=== PATIENT | female | born 1990 | race African-American/Black ===

== ENCOUNTER 2023-11-07 10:49 | Emergency (ER) | payer OTHER, SELFPAY ==
--- NOTE | 2023-11-07 10:54 | ED.URI ---
HPI - URI/Sore Throat General Chief Complaint: Upper Respiratory Infection Stated Complaint: Congestion/Headache/Cough Source: patient and RN notes reviewed Mode of arrival: ambulatory Limitations: no limitations History of Present Illness HPI Narrative: Patient is a 33-year-old female who presents to the [facility] with complaints of nasal congestion, headache, and cough for the last couple days. Patient reports an infrequent nonproductive cough. Denies chest pain or shortness of breath. She denies sore throat. Denies abdominal pain, nausea, vomiting, diarrhea. Patient states that her daughter tested positive for COVID last week. Related Data Home Medications Medication Instructions Recorded Confirmed allopurinol 100 mg tablet mg 11/07/23 Allergies Allergy/AdvReac Type Severity Reaction Status Date / Time No Known Allergies Allergy Verified 11/07/23 11:02 Review of Systems Review of Systems: CONSTITUTIONAL: Denies fever, chills, or sweats. EYES: Denies visual changes, redness, or discharge. ENT: Denies otalgia and sore throat. Reports nasal congestion. CARDIOVASCULAR: Denies chest pain, palpitations, or edema. RESPIRATORY: Reports cough but denies dyspnea. GASTROINTESTINAL: Denies abdominal pain, nausea, vomiting, or diarrhea. GENITOURINARY: Denies dysuria or hematuria. SKIN: Denies rash or itching. MUSCULOSKELETAL: Denies back pain, joint pain, or myalgia. NEUROLOGIC: Reports headache but denies numbness or weakness. Pertinent positives per HPI. PMFSH Comments At the time of my signature, I reviewed and agree with the nursing past medical, surgical, social, and family history. There is no relevant family history pertinent to the patient complaint. Exam Narrative: GENERAL: This is a well-nourished, well-developed patient, in no apparent distress. HEAD: normocephalic, atraumatic. EYES: Sclera clear/white. Vision is grossly intact. EARS: External ears normal, auditory canals clear and without drainage, TMs normal without perforation. Hearing grossly intact. NOSE: External nose normal with no obvious nasal discharge, nares without redness, no rhinorrhea. THROAT: Mucous membranes moist, posterior pharynx clear. NECK: Neck supple, non-tender without lymphadenopathy, masses or thyromegaly. CARDIOVASCULAR: Regular rate and rhythm without murmurs, gallops, or rubs. RESPIRATORY: Clear to auscultation. Breath sounds equal bilaterally. No wheezes, rales, or rhonchi. GASTROINTESTINAL: Abdomen soft, non-tender, nondistended. Bowel sounds are active. No hepato-splenomegaly, or palpable masses. No guarding. SKIN: warm, intact with no suspicious lesions or rash, good texture and turgor. NEURO: awake, alert, and oriented to person, place and time. There were no obvious focal neurologic abnormalities. Course Course Level of Care: Express Care Visit Vital Signs Vital signs: Vital Signs Temperature 98.1 F 11/07/23 10:57 Pulse Rate 81 11/07/23 10:57 Respiratory Rate 16 11/07/23 10:57 Blood Pressure 152/96 H 11/07/23 10:57 Pulse Oximetry 100 11/07/23 10:57 Oxygen Delivery Room Air 11/07/23 10:57 Temperature 98.1 F 11/07/23 11:17 Pulse Rate 81 11/07/23 11:17 Respiratory Rate 16 11/07/23 11:17 Blood Pressure 152/96 H 11/07/23 11:17 Pulse Oximetry 100 11/07/23 11:17 Oxygen Delivery Room Air 11/07/23 11:17 Reviewed MDM - URI/Sore Throat MDM Narrative Medical decision making narrative: COVID-19 DISCHARGE The following recommendations have been made by the CDC and local Health Departments, regarding COVID-19: If You Test Positive for COVID-19 (Isolate) Everyone, regardless of vaccination status. Stay home for 5 days. If you have no symptoms or your symptoms are resolving after 5 days, you can leave your house. Continue to wear a mask around others for 5 additional days. If you have a fever, continue to stay home until your fever resolves. Those individuals
[2023-11-07 10:57] VITALS: BP 152/96; PULSE 81; RESP 16; TEMP 36.7; O2SAT 100
[2023-11-07 11:17] VITALS: BP 152/96; PULSE 81; RESP 16; TEMP 36.7; O2SAT 100
== END 2023-11-07 11:32 | disposition home or self-care (01) ==
PROVIDERS: Emergency Provider Nurse Practitioner; PCP Family Medicine
DX: U07.1 COVID-19 (principal); M10.9 Gout, unspecified
CPT/HCPCS: 87426; 87804; 99213; G0463

== ENCOUNTER 2023-12-02 11:35 | Emergency (ER) | payer OTHER, SELFPAY ==
[2023-12-02 11:48] VITALS: BP 148/96; PULSE 72; RESP 16; TEMP 36.7; O2SAT 100
--- NOTE | 2023-12-02 12:14 | ED.URI ---
HPI - URI/Sore Throat General Chief Complaint: Upper Respiratory Infection Stated Complaint: Sinus Pain/Headache/Vomiting History of Present Illness HPI Narrative: PATIENT PRESENTS WITH SINUS PRESSURE AND CONGESTION. PATIENT HAS NOT TAKEN ANYTHING [id number] FOR HER SYMPTOMS. PATIENT STATES HER SYMPTOMS HAVE BEEN GOING ON FOR 7-10 DAYS Related Data Home Medications Medication Instructions Recorded Confirmed allopurinol 100 mg tablet mg 11/07/23 ergocalciferol (vitamin D2) 1,250 12/02/23 12/02/23 mcg (50,000 unit) capsule Allergies Allergy/AdvReac Type Severity Reaction Status Date / Time No Known Allergies Allergy Verified 12/02/23 11:46 Review of Systems Review of Systems: CONSTITUTIONAL: DENIES CHILLS, OR SWEATS. REPORTS FEVER AND GENERALIZED BODY ACHES EYES: DENIES VISUAL CHANGES, REDNESS, OR DISCHARGE. ENT: DENIES OTALGIA. REPORTS NASAL CONGESTION RUNNY NOSE AND SORE THROAT CARDIOVASCULAR: DENIES CHEST PAIN, PALPITATIONS, OR EDEMA. RESPIRATORY: DENIES DYSPNEA. REPORTS OCCASIONAL COUGH GASTROINTESTINAL: DENIES ABDOMINAL PAIN, NAUSEA, VOMITING, OR DIARRHEA. GENITOURINARY: DENIES DYSURIA OR HEMATURIA. SKIN: DENIES RASH OR ITCHING. MUSCULOSKELETAL: DENIES BACK PAIN, JOINT PAIN, OR MYALGIA. REPORTS GENERALIZED BODY ACHES NEUROLOGIC: DENIES HEADACHE, NUMBNESS, OR WEAKNESS. PSYCHIATRIC: DENIES ANXIETY OR DEPRESSION. PMFSH Comments AT TIME OF SIGNATURE, AGREE WITH NURSING PAST MEDICAL, SURGICAL, SOCIAL AND FAMILY HISTORY. THERE IS NO RELEVANT FAMILY HISTORY PERTINENT TO THE PRESENTING COMPLAINT Exam Narrative: THE PATIENT IS A WELL-DEVELOPED, WELL-NOURISHED IN NO ACUTE DISTRESS. SKIN: SKIN IS WARM AND DRY WITHOUT ERYTHEMA, SWELLING OR EXUDATE. THERE IS GOOD TURGOR. NO TENTING. HEAD: ATRAUMATIC. NORMOCEPHALIC. NO TEMPORAL OR SCALP TENDERNESS. EYES: MOIST AND BRIGHT. SCLERA AND CONJUNCTIVAE NORMAL. NO DISCHARGE. PERRLA. EXTRAOCULAR MOTIONS INTACT. GROSS VISUAL ACUITY INTACT. EARS: PINNA IS NORMAL SHAPE AND CONTOUR. CLEAR EXTERNAL AUDITORY CANALS. TM PEARLY MIN WITH GOOD CONE OF LIGHT, NO ERYTHEMA OR SUPPURATION. BILATERAL CERUMEN NOTED NO GROSS HEARING DEFICIT. NOSE: PINK, MOIST MUCOSA WITH GOOD AIR MOVEMENT. CLEAR RHINORRHEA WITHOUT NASAL FLARING. SEPTUM MIDLINE. MILD TENDERNESS TO MAXILLARY SINUSES MOUTH: MOIST MUCOUS MEMBRANES. THROAT; MILD ERYTHEMA NOTED TO POSTERIOR OROPHARYNX WITH MODERATE POSTNASAL DRAINAGE. WITHOUT EXUDATE OR ULCERATION.. UVULA MIDLINE. NORMAL MOVEMENT OF SOFT PALATE. NECK: SUPPLE AND NONTENDER WITH FULL RANGE OF MOTION WITHOUT DISCOMFORT. NO MENINGEAL SIGNS. LUNGS: EQUAL AND BILATERAL BREATH SOUNDS WITHOUT WHEEZES, RALES OR RHONCHI. CHEST: THE CHEST WALL IS WITHOUT RETRACTIONS OR USE OF ACCESSORY MUSCLES. HEART: HAS A REGULAR RATE AND RHYTHM WITHOUT MURMUR, GALLOPS, CLICK OR RUB. ABDOMEN: SOFT, NONTENDER WITH POSITIVE ACTIVE BOWEL SOUNDS. NO REBOUND TENDERNESS. EXTREMITIES: WITHOUT CYANOSIS, CLUBBING OR EDEMA. EQUAL 2+ DISTAL PULSES AND 2 SECOND CAPILLARY REFILL NOTED. NEUROLOGIC: ALERT, ACTIVE, . THE PATIENT MOVES ALL EXTREMITIES WITH NORMAL MUSCLE STRENGTH. NORMAL MUSCLE TONE IS NOTED. NORMAL COORDINATION IS NOTED. NO FOCAL NEUROLOGICAL FINDINGS NOTED. Course Course Level of Care: Express Care Visit Vital Signs Vital signs: Vital Signs Temperature 36.7 C 12/02/23 11:48 Pulse Rate 72 12/02/23 11:48 Respiratory Rate 16 12/02/23 11:48 Blood Pressure 148/96 H 12/02/23 11:48 Pulse Oximetry 100 12/02/23 11:48 Oxygen Delivery Room Air 12/02/23 11:48 Temperature 36.7 C 12/02/23 11:48 Pulse Rate 72 12/02/23 11:48 Respiratory Rate 16 12/02/23 11:48 Blood Pressure 148/96 H 12/02/23 11:48 Pulse Oximetry 100 12/02/23 11:48 Oxygen Delivery Room Air 12/02/23 11:48 PLEASE LEONEL SCHEDULE A FOLLOWUP VISIT WITH YOUR PERSONAL PHYSICIAN FOR FURTHER EVALUATION AND TREATMENT. INCLUDING RECHECK AND DISCUSSION OF YOUR BLOOD PRESSURE. IF YOUR SY
== END 2023-12-02 12:24 | disposition home or self-care (01) ==
PROVIDERS: Emergency Provider Nurse Practitioner Family; PCP Family Medicine
DX: J32.9 Chronic sinusitis, unspecified (principal); M10.9 Gout, unspecified; Z86.16 Personal history of COVID-19
CPT/HCPCS: 99213; G0463

== ENCOUNTER 2024-03-28 08:36 | Emergency (ER) | payer OTHER, SELFPAY ==
[2024-03-28 08:39] VITALS: BP 153/103; PULSE 73; RESP 16; TEMP 36.3; O2SAT 100
--- NOTE | 2024-03-28 09:05 | ED.URI ---
HPI - URI/Sore Throat General Chief Complaint: Upper Respiratory Infection Stated Complaint: Sinus Pain/Headache Time Seen by Provider: 03/28/24 09:05 Source: patient Mode of arrival: ambulatory Limitations: no limitations History of Present Illness HPI Narrative: 34-year-old female complains of sinus pressure for 1 week. Was seen at ER last week for sinus pressure and given prednisone. Continue to have sinus pressure this week so called primary care physician and was given Z-Sonny. Has been taking Z-Sonny for 2 days and continues to have sinus pressure. Taking Claritin and Flonase daily. Requesting work note. All systems reviewed and negative except as noted above. Related Data Home Medications Medication Instructions Recorded Confirmed ergocalciferol (vitamin D2) 1,250 12/02/23 12/02/23 mcg (50,000 unit) capsule Allergies Allergy/AdvReac Type Severity Reaction Status Date / Time No Known Allergies Allergy Verified 12/02/23 11:46 Review of Systems Review of Systems: CONSTITUTIONAL: Denies fever, chills, or sweats. EYES: Denies visual changes, redness, or discharge. ENT: Reports rhinorrhea, congestion, sinus pressure. Denies sore throat, or otalgia. CARDIOVASCULAR: Denies chest pain, palpitations, or edema. RESPIRATORY: Denies cough or dyspnea. GASTROINTESTINAL: Denies abdominal pain, nausea, vomiting, or diarrhea. GENITOURINARY: Denies dysuria or hematuria. SKIN: Denies rash or itching. MUSCULOSKELETAL: Denies back pain, joint pain, or myalgia. NEUROLOGIC: Denies headache, numbness, or weakness. PSYCHIATRIC: Denies anxiety or depression. All other systems reviewed are negative, except as documented in HPI. PMFSH Comments At time of signature, agree with nursing past medical, surgical, social and family history. There is no relevant family history pertinent to the presenting complaint. Exam Narrative: GENERAL: This is a well-nourished, well-developed patient, in no apparent distress. HEAD: normocephalic, atraumatic. EYES: PERRL. Sclera clear/white. Vision is grossly intact. EARS: External ears normal, auditory canals clear and without drainage, TMs normal without perforation. Hearing grossly intact. NOSE: External nose normal with erythema and swelling to bilateral nares with moderate congestion. THROAT: Mucous membranes moist, posterior pharynx clear. NECK: Neck supple, non-tender without lymphadenopathy, masses or thyromegaly. CARDIOVASCULAR: Regular rate and rhythm without murmurs, gallops, or rubs. RESPIRATORY: Clear to auscultation. Breath sounds equal bilaterally. No wheezes, rales, or rhonchi. SKIN: warm, Dry, intact with no suspicious lesions or rash, good texture and turgor. NEURO: awake, alert, and oriented to person, place and time. There were no obvious focal neurologic abnormalities. EXTREMITIES: No joint tenderness, effusion, or edema noted. Course Course Level of Care: Express Care Visit Vital Signs Vital signs: Vital Signs Temperature 36.3 C L 03/28/24 08:39 Pulse Rate 73 03/28/24 08:39 Respiratory Rate 16 03/28/24 08:39 Blood Pressure 153/103 H 03/28/24 08:39 Pulse Oximetry 100 03/28/24 08:39 Oxygen Delivery Room Air 03/28/24 08:39 Temperature 36.3 C L 03/28/24 08:39 Pulse Rate 73 03/28/24 08:39 Respiratory Rate 16 03/28/24 08:39 Blood Pressure 153/103 H 03/28/24 08:39 Pulse Oximetry 100 03/28/24 08:39 Oxygen Delivery Room Air 03/28/24 08:39 Reviewed MDM - URI/Sore Throat MDM Narrative Medical decision making narrative: Patient is aware of diagnosis, understands and agrees to treatment plan. Anticipatory guidance given. Patient agrees to follow-up as directed and is aware of reasons to seek care at the emergency department. Portions of this record may have been created with voice recognition software Differential Diagnosis Differential diagnosis: Likely sinusitis Discharge Plan Discharge Clinical Impression: Acut
== END 2024-03-28 09:18 | disposition home or self-care (01) ==
PROVIDERS: Emergency Provider Nurse Practitioner Family; PCP Family Medicine
DX: J01.90 Acute sinusitis, unspecified (principal)
CPT/HCPCS: 99213; G0463

== ENCOUNTER 2025-02-28 11:40 | Emergency (ER) | payer OTHER, SELFPAY ==
--- OUTSIDE RECORDS SUMMARY | 2025-02-28 11:43 | XMS_ITS | Clinical Summary ---
Author Organization [facility] Address [address] [place] [address] Care Team Providers Care Die Engraver Name Role Phone Unavailable Primary Care Provider Unavailabl e Source Comments [facility],non-owned Affiliates and Associated Physician Practices is amultiple site organization consisting of ambulatory clinics and hospital sitesin [place] and [place]. This disclosure is being madepursuant to the Care Everywhere program and may not contain all information available regarding this patient. Last updated 18.[facility] Allergies No known active allergies Social History Tobacco Use Types Packs/Day Years Used Date Smoking Tobacco: Never Assessed Comments Unknown Sex and Gender Information Value Date Recorded Sex Assigned at Not on file Legal Sex Female 4:20 PM LINE OUT MAN Gender Identity Not on file Sexual Orientation Not on file Plan of Treatment Health Maintenance Due Date Last Done Comments HIV SCREENING 01/23/2004 HEPATITIS C SCREENING 01/18/2007 DTAP/TDAP/TD VACCINES (1 - Tdap) 01/23/2008 HEPATITIS B VACCINE (1 of 3 - 19+ 3-dose series) 01/23/2008 COVID-19 VACCINE ( - 2023-2 5 season) 2024 DEPRESSION SCREENING 09/17/2024 INFLUENZA VACCINE (Season Ended) 2025 ZOSTER VACCINE (1 of 2) 2039 HIB VACCINE Aged Out No longer eligi ble based on patient's age to complete this topic HPV VACCINE Aged Out No longer eligi ble based on patient's age to complete this topic MENINGOCOCCAL (Group B) VACC INE SHARED DECISION-MAKING Aged Out No longer eligibl e based on patient's age to complete this topic MENINGOCOCCAL GROUPS A/C/Y/W VACCINE Aged Out No longer eligible b ased on patient's age to complete this topic PNEUMOCOCCAL VACCINE Aged Out No long er eligible based on patient's age to complete this topic Insurance [facility]
--- OUTSIDE RECORDS SUMMARY | 2025-02-28 11:43 | XMS_ITS | Clinical Summary ---
Author Organization [facility] Address [address] [place] [address] Phone Care Team Providers Care Financial Reserve Clerk Name Role Phone Taj Mcgee MD Primary Care Provider [phone] Allergies No known active allergies Medications fluticasone (FLONASE) 50 MCG/ACT SuspensionIndi cations:Season al allergies 1-2 Sprays by Nasal route daily. Use in each nostril as directed. 18.2 mL 3 04/18/20 23 Active Additional Information Patient not taking.Reported on 12/30/2024 loratadine (CLARITIN) 10 MG TabletIndicati ons:Seasonal allergies Take 1 Tablet by mouth daily. 90 Tablet 3 01/07/20 24 Active vitamin b-12 (CYANOCOBALAMI N) 500 MCG Tablet TAKE 1 TABLET BY MOUTH ONCE DAILY FOR 90 DOSES 07/15/20 24 Active cetirizine (ZyrTEC) 10 MG Tablet Take 1 Tablet by mouth daily. Active fluticasone (FLONASE) 50 MCG/ACT Suspension 1 [place] by Nasal route daily. Use in each nostril as directed. 16 g 2 08/12/20 24 Active metoprolol Succinate (TOPROL-XL) 25 MG TABLET SR 24 HR Take 1 Tablet by mouth daily. 90 Tablet 3 12/17/19 25 Active ergocalciferol (VITAMIN D) 14591 UNIT CapsuleIndicat ions:Vitamin D deficiency Take 1 Capsule by mouth once a week for 12 doses. 12 Capsule 04/02/20 25 025 Active allopurinol (ZYLOPRIM) 100 MG Tablet Take 1 tablet by mouth once daily 90 Tablet 1 02/13/20 25 Active allopurinol (ZYLOPRIM) 100 MG Tablet Take 2 Tablets by mouth daily. 180 Tablet 3 09/16/20 23 025 Discontinued Active Problems Problem Noted Date Diagnosed Date Primary hypertension 12/16/2024 Tachycardia 12/16/2024 Hypokalemia 08/13/2024 Dry nose 08/12/2024 Obesity (BMI 30-39.9) 08/12/2024 Subacute maxillary sinusitis 03/24/2024 B12 deficiency 07/23/2023 Idiopathic gout 04/18/2023 Morbid obesity 04/18/2023 Seasonal allergies 04/18/2023 Vitamin D deficiency 03/16/2022 Encounters Date Type Department Care Team Description 02/11/2025 Refill [facility] [address] [place] [address] Taj Mcgee MD Medication Refill 12/31/2024 3:37 PM CDT - 12/31/2024 4:31 PM CDT Emergency [facility] Emergency [address] [place] [address] Discharge Disposition: LWBS 12/31/2024 Travel 12/30/2024 10:00 AM CDT Clinical Support [facility] [address] [place] [address] [facility] Primary hypertension (Primary Dx) Discharge Disposition: Discharged to home or Selfcare 12/29/2024 Travel 12/17/2024 Results Follow-Up [facility] [address] [facility] [place] [address] Taj Mcgee MD VITAMIN D, 25 HYDROXY TOTAL, BASIC METABOLIC PANEL W/ CALCIUM TOTAL 12/16/2024 10:45 AM CDT Office Visit [facility] [address] [place] [address] Taj Mcgee MD Primary hypertension (Primary Dx); Vitamin D deficiency; Tachycardia; Hypokalemia Discharge Disposition: Discharged to home or Selfcare 12/15/2024 Travel from Last 3 Months Immunizations Immunization Administration Dates Next Due DTP Vaccine 06/27/1994, 3,01/17/1991,1989,1989 Hepatitis B Vaccine, Pediatric/adolescent 01/29/2002,08/05/2001,06/19/2001 Hib Vaccine,unspecified Formulation 09/27/1992 MMR Vaccine 09/27/1992,01/17/1991 OPV 06/27/1994, 3,01/17/1991,1989,1989 TDAP Vaccine 04/20/2021,12/07/2016 Varicella Vaccine Live 07/08/2021,04/20/2021 Family History Medical History Relation Name Comments Congestive Heart Failure Father Buddy Diabetes Father Buddy Heart Attack Father Buddy Cancer Maternal Grandmother Laura Hypertension Mother Brisa Rheumatoid Arthritis Mother Brisa Relation Name Status Comments Father Buddy Maternal Grandmother Laura Mother Brisa Social History Tobacco Use Types Packs/Day Years Used Date Smoking Tobacco: Never Smokeless Tobacco: Never Tobacco Cessation:Counseling Given: Yes Alcohol Use Standard Drinks/Week Comments Not Currently 0 (1 standard drink = 0.6 oz pur e alcohol) [facility] Utilities Answer Date Recorded In the past 12 months has [employer], gas, oil, or water [employer] threatened to shut off services in your home? No 12/15/2024 Social Connection and Isolation Panel Answer Date Recorded In a typical week, how many times do you talk on the phone with family, friends, or neighbors? Three times a week 12/15/2024 How often do you get togethe r with friends or relatives? Once a week 12/15/2024 How often do you attend chur ch or spiritism services? More than 4 times per year 12/15/2024 Do you belong to any clubs o r organizations such as holiness groups, unions, fraternal or athletic groups, or school groups? No 12/15/2024 How often do you attend meet ings of the clubs or organizations you belong to? Never 12/15/2024 Are you , , di vorced, , never , or living with a partner? Patient declined 12/15/2024 AUDIT-C Answer Date Recorded Q1: How often do you have a drink containing alcohol? Never 12/15/2024 Q2: How many drinks containi ng alcohol do you have on a typical day when you are drinking? Patient does not drink Q3: How often do you have si x or more drinks on one occasion? Never 12/15/2024 Overall Financial Resource Strain (CARDIA) Answe r Date Recorded How hard is it for you to pa y for the very basics like food, housing, medical care, and heating? Somewhat hard 12/15/2024 PHQ-2 Answer Date Recorded Total Score - Questions 1-9 0 09/2024 [facility] of Occupat ional Health - Occupational Stress Questionnaire Answer Date Recorded Do you feel stress - tense, restless, nervous, or anxious, or unable to sleep at night because your mind is troubled all the time - these days? Only a little 12/15/2024 Exercise Vital Sign Answer Date Recorde d On average, how many days pe r week do you engage in moderate to strenuous exercise (like a brisk walk)? 3 days 12/15/2024 On average, how many minutes do you engage in exercise at this level? 60 min 12/15/2024 Hunger Vital Sign Answer Date Recorded Within the past 12 months, y ou worried that your food would run out before you got the money to buy more. Sometimes true Within the past 12 months, t he food you bought just didn't last and you didn't have money to get more. Sometimes true PRAPARE - Transportation Answer Date Re corded In the past 12 months, has l ack of transportation kept you from medical appointments or from getting medications? No 11/17 In the past 12 months, has l ack of transportation kept you from meetings, work, or from getting things needed for daily living? No 12/15/2024 Housing Stability Vital Sign Answer Joni e Recorded In the last 12 months, was t here a time when you were not able to pay the mortgage or rent on time? No 01/06/2024 In the last 12 months, how many places have you lived? 1 01/06/2024 In the last 12 months, was t here a time when you did not have a steady place to sleep or slept in a usp (including now)? No 01/06/2024 Housing Stability Vital Sign Answer Joni e Recorded In the last 12 months, was t here a time when you were not able to pay the mortgage or rent on time? No 12/15/2024 In the past 12 months, how m any times have you moved where you were living? 0 12/15/2024 At any time in the past 12 m [facility], were you homeless or living in a usp (including now)? No 12/15/2024 Education Answer Date Recorded What is the highest level of school you have completed or the highest degree you have received? GED or equivalent 10/2022 Sexually Active Control Partners Comments Not Currently Male Condom Male Comments No Sex and Gender Information Value Date Recorded Sex Assigned at Not on file Legal Sex Female 8:34 PM CDT Gender Identity Not on file Sexual Orientation Not on file Last Filed Vital Signs Vital Sign Reading Time Taken Comments Blood Pressure 134/80 12/31/2024 1:45 PM CDT Pulse 73 12/31/2024 1:45 PM CDT Temperature 37.2 C (98.9 F) 12/31/2024 1:45 PM CDT Respiratory Rate 18 12/31/2024 1:45 PM CDT Oxygen Saturation 100% 12/31/2024 1:45 PM CDT Inhaled Oxygen Concentration - - Weight 100.4 kg (221 lb 5.5 oz) 12/31/2024 1:45 PM CDT Height 165.1 cm (5' 5) 12/31/2024 1:45 PM CDT Body Mass Index 36.83 12/31/2024 1:45 PM CDT Plan of Treatment Upcoming Encounters Date Type Department Care Team (Late st Contact Info) Description 04/15/2025 11:00 AM CDT Office Visit [facility] [place] [address] [place] [address] aTj Mcgee MD [address] [address] Health Maintenance Due Date Last Done Comments Hepatitis C Virus (HCV) Screening 1989 Human Papillomavirus (HPV) Immunization (1 - 3-dose series) 01/23/2004 SARS-COV-2 Immunization (3 - season) 2024 05/06/2021, 04/08/2021 Influenza Immunization (Season Ended) 2025 Cervical Cancer Screening (CCS) 10/18/2025 Pap Smear 10/18/2025 10/18/2020 HPV/Cotest 10/18/2026 10/18/2021, 10/22/2020 DTaP/Tdap/Td Immunization (8 - Td or Tdap) 04/20/2031 04/20/2021, 12/07/2016, 06/27/1994, Additional history exists Respiratory Syncytial Virus (RSV) Immunization (Adult) (1 - 1-dose 75+ series) 01/23/2064 Hepatitis B Immunization Completed 002, 08/05/2001, 06/19/2001 Meningococcal Immunization (ACWY) Aged Out No longer eligible based on patient's age to complete this topic Pneumococcal Immunization Combined Aged Out No longer eligible based on patient's age to complete this topic Rotavirus Immunization Aged Out No lo nger eligible based on patient's age to complete this topic Procedures Procedure Name Priority Date/Time Associated Diagnosis Comments URINALYSIS REFLEX IF INDICATED BY ABNORMAL RESULTS STAT 12/31/2024 2:50 PM CDT BASIC METABOLIC PANEL W/ CALCIUM TOTAL Routine 12/16/2024 11:35 AM CDT Hypokalemia VITAMIN D, 25 HYDROXY TOTAL Routine 12/16/2024 11:35 AM CDT Vitamin D deficiency HUMAN PAPILLOMA VIRUS (HPV) 10/18/2021 12:00 AM FUNNEL COATER PATHOLOGY CYTOLOGY [employer]KE [employer]TER MIXER 10/18/2020 12:00 AM FUNNEL COATER from Last 3 Months or Most Recently Relevant to Health Maintenance Results * (ABNORMAL) URINALYSIS REFLEX IF INDICATED BY ABNORMAL RESULTS (12/31/2024 2:50 PM CDT) Pathologist [facility] SPECIFIC GRAVITY 1.010 1.003 - 1.030 12/31/2024 3:32 PM CDT [facility] URINE PH 7.0 5.0 - 9.0 12/31/2024 3:32 PM CDT [facility] WBC ESTERASE Negative Negative 12/31/2024 3:32 PM CDT [facility] NITRITE Negative Negative 12/31/2024 3:32 PM CDT [facility] PROTEIN, RANDOM URINE 15 mg/dL(A) Negative 12/31/2024 3:32 PM CDT [facility] URINE GLUCOSE, QUAL Negative Negative 12/31/2024 3:32 PM CDT [facility] URINE KETONES Negative Negative 12/31/2024 3:32 PM CDT [facility] UROBILINOGEN Normal Normal mg/dL 12/31/2024 3:32 PM CDT [facility] URINE BLOOD Negative Negative gretchen/ul 12/31/2024 3:32 PM CDT [facility] URINALYSIS COLOR Yellow 01/01/20 3:32 PM CDT [facility] URINALYSIS CLARITY Clear 12/31/2024 3:32 PM CDT [facility] Urine URINE SPECIMEN OBTAINED BY CLEAN CATCH PROCEDURE / Unknown Non-Phlebotomy Collection / Unknown 12/31/2024 2:50 PM CDT 12/31/2024 3:11 PM CDT us Tommie Rios MD URINE ORDERABLES Final Re sult [facility] [address] [place] [address] * VITAMIN D, 25 HYDROXY TOTAL (12/16/2024 11:35 AM CDT) [facility] VITAMIN D, 25 HYDROX 21.6 ng/mL 12/16/2024 12:32 PM CDT [facility] Blood Venipuncture / Unknown 12/16/2024 11:35 AM CDT 12/16/2024 11:47 AM CDT Narrative [facility] - 12/16/2024 12:32 PM CDT Published reference ranges for Vitamin D vary depending on time and place and method of testing, and on patient's age, sex, ethnicity and levels of other measured analytes such as parathormone, calcium and phosphorus. The result should be evaluated in conjunction with clinical findings and suspicions. [place] [employer] and Endocrine Clinical Practice Guidelines: Status Vitamin D levels (ng/mL) Deficient <=20 At risk of inadequacy 21-29 Sufficient 30-100 Centers of Disease Control and Prevention Guidelines: Status Vitamin D levels (ng/mL) Deficient <13 At risk of inadequacy 13-19 Sufficient 20-50 Possibly harmful >50 References: [place] [employer], 2010 Dietary reference intakes for calcium and vitamin D. [place]: The National Academies Press. Cora M, Ailyn N, Sheeba CABRAL, et al., Evaluation, treatment, and prevention of Vitamin D deficiency: an Endocrinology Clinical Practice Guideline. JCEM 2011 96: 7 4553-9899. Jose R A, Sidney C, Dionna D, et al., Vitamin D Status: [place], , AKHS data brief, no. 59, MD [place]: National Center for Health Statistics. 2011. Taj Mcgee MD CHEMISTRY ORDERABLES Marina molina Result [facility] [address] [place] [address] * BASIC METABOLIC PANEL W/ CALCIUM TOTAL (12/16/2024 11:35 AM CDT) SODIUM 139 136 - 145 mmol/L 12/16/2024 12:13 PM CDT [facility] POTASSIUM 4.1 3.5 - 5.1 mmol/L 12/16/2024 12:13 PM CDT [facility] CHLORIDE 106 98 - 107 mmol/L 12/16/2024 12:13 PM CDT [facility] CO2, VENOUS 27 22 - 30 mmol/L 12/16/2024 12:13 PM CDT [facility] ANION GAP 10.1 <18.0 mmol/L 12/16/2024 12:13 PM CDT [facility] GLUCOSE 98 70 - 99 mg/dL 12/16/2024 12:13 PM CDT [facility] BUN 9 5 - 18 mg/dL 12/16/2024 12:13 PM CDT [facility] CREATININE, BLOOD 0.73 0.60 - 1.00 mg/dL 12/16/2024 12:13 PM CDT [facility] BUN/CREATININE RATIO 12 12 - 20 ratio 12/16/2024 12:13 PM CDT [facility] CALCIUM 9.7 8.7 - 10.5 mg/dL 12/16/2024 12:13 PM CDT [facility] IS THE PATIENT REQUIRED TO BE FASTING? No 12/16/2024 12:13 PM CDT [facility] GFR, ESTIMATED >60 >=60 12/16/2024 12:13 PM CDT [facility] Comment: Creatinine Clearance is the preferred criteria for selecting drug dose adjustments in renally impaired patients. The GFR is provided as additional pertinent clinical information. GFR is reported in mL/min/1.73 sq m. Calculation based on the Chronic Kidney Disease Epidemiology Collaboration (CKD- EPI) equation refit without adjustment for race. GFR, EST. >60 >=60 025 12:13 PM CDT [facility] GFR, EST. NONAFRICAN >60 >=60 12/16/2024 12:13 PM CDT [facility] Blood Venipuncture / Unknown 12/16/2024 11:35 AM CDT 12/16/2024 11:47 AM CDT Taj Mcgee MD CHEMISTRY ORDERABLES Marina l Result [facility] [address] [place] [address] * HUMAN PAPILLOMA VIRUS (HPV) (10/18/2021 12:00 AM FUNNEL COATER) 10/18/2021 us Not On File Provider LAB SEND OUTS Final Resul t SCAN * PATHOLOGY CYTOLOGY CAKE [employer] MIXER (10/18/2020 12:00 AM FUNNEL COATER) 10/18/2020 us Not On File Provider PATHOLOGY/CYTOLOGY ORDERABL ES Final Result Performing Organization Address City/[facility] Co de Phone Number [facility] NON-INTERFACED REFERENCE LABORATORIES from Last 3 Months or Most Recently Relevant to Health Maintenance Insurance MEDICAID [place] Care Teams Financial Reserve Clerk Relationship Specialty Start Date End Date Taj Mcgee MD [address] [address] PCP - General Family Medicine 03/14/22
--- OUTSIDE RECORDS SUMMARY | 2025-02-28 11:43 | XMS_ITS | Data Portability ---
[facility] Address [address] [place] [address] Assessment No assessment recorded. Plan of Treatment Reminders Order Date Submit Date Provider Last Modified By Organization Details Last Modified Time Details Appointments None record ed. Lab urinal ysis, dipsti ck 2023 024 [email or web address] In-Office Order, Internal Use Only DO Not Attach Compendium DO Not Attach Compendium, Do Not Delete/merge, [id number] 4 12:30:14 cultur e, urine 2023 024 [facility], [address] [place] [address] 2, [place], [address], 4 16:12:12 RPR (rapid plasma reagin ), serum 2023 024 [facility], [address] [place] [address] 2, [place], [address], 4 07:14:26 HIV 1 + 2, meanin gful use set 2023 024 [facility], [address] [place] [address] 2, [place], [address], 4 07:14:27 HBsAg (hepat itis B surfac e Ag), EIA, serum 2023 024 [facility], [address] [place] [address] 2, [place], [address], 4 07:14:25 Hepati tis C IgG Ab, qual, serum 2023 024 [facility], [address], [address], [place], [address], 4 07:14:22 chlamy ervin tracho matis + neisse garry gonorr hoeae + tricho monas vagina lis rRNA panel, SHIV+pr obe 2023 024 [facility], [address], [address], [place], [address], 4 07:14:24 mycopl asma genita lium DNA, qualit ative, PCR 2023 024 [facility], [address] [facility], [address], [place], [address], 4 16:12:15 herpes simple x virus 1 + 2 IgG panel, serum or plasma 2023 024 [facility], [address] [facility], [address], [place], [address], 4 07:14:23 vagina l pathog ens panel, SHIV+pr obe, vagina l fluid 2023 024 [facility], [address], [address], [place], [address], 4 07:18:10 mycopl asma genita lium DNA, qualit ative, PCR 2023 024 [facility], [address], [address], [place], [address], 4 07:18:11 HIV 1 + 2, meanin gful use set 2023 024 [facility], [address], [address], [place], [address], 4 07:16:45 RPR (rapid plasma reagin ), serum 2023 024 [facility], [address] [place] [address], [address], [place], [address], 4 07:16:44 HBsAg (hepat itis B surfac e Ag), EIA, serum 2023 024 [facility] [address] [place] [address], [address], [place], [address], 4 07:16:44 Hepati tis C IgG Ab, qual, serum 2023 024 [facility], [address] [place] [address], [address], [place], [address], 4 07:16:42 HSV 2 IgG Ab, QN, IA, serum 2023 024 [facility], [address] [place] [address], [address], [place], [address], 4 07:16:43 cytolo gy report , thin prep, smear or scrapi ng, cervic al or vagina l 2023 024 [facility], [address] [place] [address], [address], [place], [address], 4 07:19:06 chlamy ervin tracho matis + neisse garry gonorr hoeae + tricho monas vagina lis DNA panel, SHIV+pr obe, unspec ified specim en 2022 023 [facility], [address] [place] [address], [address], [place], [address], 3 07:13:22 cytolo gy report , thin prep, smear or scrapi ng, cervic al or vagina l 2022 023 [facility], [address] [place] [address], [address], [place], [address], 3 10:43:14 HBsAg (hepat itis B surfac e Ag), EIA, serum 2022 023 [facility], [address], [address], [place], [address], 3 07:13:13 HIV 1 + 2, meanin gful use set 2022 023 [facility], [address] [facility], [address], [place], [address], 3 07:13:14 hsv (1+2) igg Ab, serum 2022 023 [facility], [address] [facility], [address], [place], [address], 3 07:13:12 Hepati tis C IgG Ab, qual, serum 2022 023 [facility], [address] [facility], [address], [place], [address], 3 07:13:11 RPR (rapid plasma reagin ), serum 2022 023 [facility], [address] [facility], [address], [place], [address], 3 07:13:13 CT + NG + TV, DNA, urine/ swab 2020 021 [facility], [address], [address], [place], [address], 1 07:12:17 HIV 1+2 AB + HIV 1 p24 Ag, qualit ative immuno assay, serum 2020 021 [facility], [address], [address], [place], [address], 1 16:11:32 RPR (rapid plasma reagin ), serum 2020 021 [facility], [address] [facility], [address], [place], [address], 16:11:31 HBsAg (hepat itis B surfac e Ag), EIA, serum 2020 021 [facility], [address] [facility], [address], [place], [address], 16:11:34 HSV 2 IgG Ab, QN, IA, serum 2020 021 [facility], [address] [facility], [address], [place], [address], 16:11:33 hepati tis C Ab, signal -to-cu toff, serum or plasma 2020 021 [facility], [address] [facility], [address], [place], [address], 16:11:33 Referral reprod uctive endocr inolog ist referr al 2023 024 [facility] Le[facility] Smith MD, [address] [facility], [address], [place], [address], 5 09:09:13 Procedures None record ed. Surgeries None record ed. Imaging None record ed. Medication Orders None record ed. Patient TargetsNo targets recorded. Patient Instructions Encounter Date Encounter Id Patient Instructions Last Modified By Organization Details Last Modified Time 03/25/2024 [id number] A healthy lifestyle: care instructions [email or web address] Not available 03/25/2024 11:51:06 09/02/2024 [id number] A healthy lifestyle: care instructions [email or web address] Not available 09/02/2024 15:27:56 Reason for Referral Hand [employer]er Referral for History of tubal ligation Referring Physician: Arvin Gonzalez, TAXI DANCER, Encounter Date: 09/02/2024 Results Created Date Observation Date Name Description Value Unit Range Abnormal Flag Note LastModifiedBy Organization Detail LastModifiedTime 08/08/20 21 08/09/2021 RPR, RFX QN RPR/C ONFIR M TP RPR Non Reacti ve non reacti ve Not Available [facility] ([facility]) [address], [place], [address], 08/09/2021 16:11:31 08/08/20 21 08/09/2021 HIV AG/AB WITH REFLE X HIV screen 4TH generation wrfx Non Reacti ve non reacti ve Not Available [facility] ([facility]) [address], [place], [address], 08/09/2021 16:11:32 08/08/20 21 08/09/2021 HCV ANTIB CATHERINE hep C virus Ab <0.1 s/co_ ratio 0.0-0. 9 Negat oleg: < 0.8 Indet ermin ate: 0.8 - 0.9 Posit oleg: > 0.9 The CDC recom mends that a posit oleg HCV antib catherine resul t be follo wed up with a HCV Nucle ic Acid Ampli ficat ion test (6349 13). Not Available [facility] ([facility]) [address], [place], [address], 08/09/2021 16:11:32 08/08/20 21 08/09/2021 HSV-2 TYPE SPEC AB, IGG W/RFL X hsv 2 IgG, type spec <0.91 index 0.00-0 .90 Negat oleg <0.91 Equiv ocal 0.91 - 1.09 Posit oleg >1.09 Note: Negat oleg indic ates no antib odies detec italo to HSV-2 . Equiv ocal may sugge st early infec tion. If clini anthony appro priat e, retes t at later date. Posit oleg indic ates antib odies detec italo to HSV-2 . Not Available [facility] ([facility]) [address], [place], [address], 08/09/2021 16:11:33 08/08/20 21 08/09/2021 HBSAG SCREE N HBsAg screen Negati ve negati ve Not Available [facility] ([facility]) [address] [place], [address], 08/09/2021 16:11:34 08/08/20 21 08/09/2021 CT, NG, TRICH VAG BY SHIV chlamydia by SHIV Negati ve negati ve Not Available [facility] ([facility]) [address] [place], [address], 08/10/2021 07:12:17 08/08/2008/09/2021 CT, NG, TRICH VAG BY SHIV gonococcus by SHIV Negati ve negati ve Not Available [facility] ([facility]) [address] [place], [address], 08/10/2021 07:12:17 08/08/2008/09/2021 CT, NG, TRICH VAG BY SHIV trich vag by SHIV Negati ve negati ve Not Available [facility] ([facility]) [address] [place], [address], 08/10/2021 07:12:17 12/27/1912/28/2022 IGP,C TNGTV ,APT HPV,R FX16/ 18,45 HPV aptima Positi ve negati ve abnormal This nucle ic acid ampli ficat ion test detec ts fourt een high- risk HPV types (16,1 8,31, 33,35 ,39,4 5,51, 52,56 ,58,5 9,66, 68) witho ut diffe renti ation . Not Available [facility] ([facility]) [address] [place], [address], 01/03/2023 07:18:29 12/27/1912/28/2022 IGP,C TNGTV ,APT HPV,R FX16/ 18,45 chlamydia, nuc. acid amp Positi ve negati ve abnormal Not Available [facility] ([facility]) [address] [place], [address], 01/03/2023 07:18:29 12/27/19 23 12/28/2022 IGP,C TNGTV ,APT HPV,R FX16/ 18,45 gonococcus, nuc. acid amp Negati ve negati ve Not Available [facility] ([facility]) [address] [place], [address], 01/03/2023 07:18:29 12/27/19 23 12/28/2022 IGP,C TNGTV ,APT HPV,R FX16/ 18,45 trich vag by SHIV Negati ve negati ve Not Available [facility] ([facility]) [address] [place], [address], 01/03/2023 07:18:29 12/27/19 23 01/01/2023 IGP,C TNGTV ,APT HPV,R FX16/ 18,45 diagnosis: Commen t NEGAT OLEG FOR INTRA EPITH ELIAL LESIO N OR NESS NOEL . Not Available [facility] ([facility]) [address] [place], [address], 01/03/2023 07:18:29 12/27/19 23 01/01/2023 IGP,C TNGTV ,APT HPV,R FX16/ 18,45 specimen adequacy: Commen t Satis facto ry for evalu ation . Endoc ervic al and/o r squam ous metap lasti c cells (endo cervi smauel compo nent) are prese nt. Not Available [facility] ([facility]) [address] [place], [address], 01/03/2023 07:18:29 12/27/19 23 01/01/2023 IGP,C TNGTV ,APT HPV,R FX16/ 18,45 clinician provided ICD10: Commen t Z01.4 19 Not Available [facility] ([facility]) [address] [place], [address], 01/03/2023 07:18:29 12/27/19 23 01/01/2023 IGP,C TNGTV ,APT HPV,R FX16/ 18,45 performed by: Phuc Bolden r, Super visor y [employer] e[employer]o kaley t (ASCP ) Not Available [facility] ([facility]) [address] [place], [address], 01/03/2023 07:18:29 12/27/19 23 01/01/2023 IGP,C TNGTV ,APT HPV,R FX16/ 18,45 . . Not Available [facility] ([facility]) [address], [place], [address], 01/03/2023 07:18:29 12/27/19 23 01/01/2023 IGP,C TNGTV ,APT HPV,R FX16/ 18,45 note: Phuc parish The Pap smear is a scree vladimir test desig jonah to aid in the detec tion of lucinda ligna nt and malig nant condi tions of the uteri ne cervi x. It is not a diagn ostic proce dure and shoul d not be used as the sole means of detec ting cervi samuel cance r. Both false -posi tive and false -nega tive repor ts do occur . Not Available [facility] ([facility]) [address], [place], [address], 01/03/2023 07:18:29 12/27/19 23 01/01/2023 IGP,C TNGTV ,APT HPV,R FX16/ 18,45 test methodology: Phuc [place] This liqui d based ThinP rep(R ) pap test was scree jonah with the use of an image guide elias irizarry Not Available [facility] ([facility]) [address] [place], [address], 01/03/2023 07:18:29 12/27/19 23 01/01/2023 IGP,C TNGTV ,APT HPV,R FX16/ 18,45 HPV genotype reflex Commen t Crite garry met, see HPV Genot ype resul ts. Not Available [facility] ([facility]) [address], [place], [address], 01/03/2023 07:18:29 12/27/19 23 01/02/2023 HPV GENOT YPES 16/18 ,45 HPV genotype 16 Negati ve negati ve Not Available [facility] ([facility]) [address], [place], [address], 01/03/2023 07:18:29 12/27/19 23 01/02/2023 HPV GENOT YPES 16/18 ,45 HPV genotype 18,45 Negati ve negati ve Not Available [facility] ([facility]) [address], [place], [address], 01/03/2023 07:18:29 12/27/19 23 12/27/2022 HIV AB/P2 4 AG WITH REFLE X HIV Ab/P24 Ag screen Non Reacti ve nonrea ctive HIV Negat oleg HIV-1 /HIV- 2 antib odies and HIV-1 p24 antig en were NOT detec italo. There is no labor atory evide nce of HIV infec tion. Not Available [facility] ([facility]) [address], [place], [address], 12/27/2022 07:13:14 12/27/19 23 12/27/2022 RPR, RFX QN RPR/C ONFIR M TP RPR Non Reacti ve nonrea ctive Not Available [facility] ([facility]) [address] [place], [address], 12/27/2022 07:13:13 12/27/19 23 12/27/2022 HBSAG SCREE N HBsAg screen Negati ve negati ve Not Available [facility] ([facility]) [address], [place], [address], 12/27/2022 07:13:12 12/27/19 23 12/27/2022 HSV 1 AND 2-SPE C AB, IGG W/RFX hsv 1 IgG, type spec 41.20 index 0.00-0 .90 above high normal Negat oleg <0.91 Equiv ocal 0.91 - 1.09 Posit oleg >1.09 Note: Negat oleg indic ates no antib odies detec italo to HSV-1 . Equiv ocal may sugge st early infec tion. If clini anthony appro priat e, retes t at later date. Posit oleg indic ates antib odies detec italo to HSV-1 . Not Available [facility] ([facility]) [address], [place], [address], 12/27/2022 07:13:12 12/27/19 23 12/27/2022 HSV 1 AND 2-SPE C AB, IGG W/RFX hsv 2 IgG, type spec <0.91 index 0.00-0 .90 Negat oleg <0.91 Equiv ocal 0.91 - 1.09 Posit oleg >1.09 Note: Negat oleg indic ates no HSV-2 antib odies detec italo. Posit oleg indic ates HSV-2 antib odies detec italo. Equiv ocal and low posit oleg HSV-2 scree ns (Inde x 0.91- 5.00) may be false posit oleg and are refle xed to suppl victorina hedrick in accor dance with CDC guide lines . Not Available [facility] ([facility]) [address], [place], [address], 12/27/2022 07:13:12 12/27/1912/27/2022 HCV ANTIB CATHERINE hep C virus Ab Non Reacti ve nonrea ctive HCV antib catherine alone does not diffe renti ate betwe en previ ously resol vamsi infec tion and activ e infec tion. Equiv ocal and React oleg HCV antib catherine resul ts shoul d be follo wed up with an HCV RNA test to suppo rt the diagn osis of activ e HCV infec tion. Not Available [facility] ([facility]) [address] [place], [address], 12/27/2022 07:13:11 01/24/20 23 01/25/2023 CT, NG, TRICH VAG BY SHIV chlamydia by SHIV Negati ve negati ve Not Available [facility] ([facility]) [address] [place], [address], 01/25/2023 07:13:22 01/24/20 23 01/25/2023 CT, NG, TRICH VAG BY SHIV gonococcus by SHIV Negati ve negati ve Not Available [facility] ([facility]) [address] [place], [address], 01/25/2023 07:13:22 01/24/20 23 01/25/2023 CT, NG, TRICH VAG BY SHIV trich vag by SHIV Negati ve negati ve Not Available [facility] ([facility]) [address], [place], [address], 01/25/2023 07:13:22 03/25/20 24 03/26/2024 HCV ANTIB CATHERINE hep C virus Ab NON REACTI VE nonrea ctive HCV antib catherine alone does not diffe renti ate betwe en previ ously resol vamsi infec tion and activ e infec tion. Equiv ocal and React oleg HCV antib catherine resul ts shoul d be follo wed up with an HCV RNA test to suppo rt the diagn osis of activ e HCV infec tion. Not Available [facility] ([facility]) [address] [place], [address], 03/26/2024 07:16:42 03/25/20 24 03/26/2024 HSV-2 AB, IGG hsv 2 IgG, type spec <0.91 index 0.00-0 .90 Negat oleg <0.91 Equiv ocal 0.91 - 1.09 Posit oleg >1.09 HSV-2 Antib catherine Inter preta tion: Curre nt guide lines and recom menda tions do not recom mend routi ne scree vladimir for HSV-2 in asymp tomat ic indiv idual s, inclu ding those that are pregn ant. A negat oleg antib catherine resul t indic ates no detec table antib odies to HSV-2 were found . If recen t expos ure is suspe cted, retes t in 4 to 6 weeks . Equiv ocal sampl es shoul d be retes italo in 4 to 6 weeks . A posit oleg resul t indic ates the prese nce of detec table IgG antib catherine to HSV-2 . FALSE POSIT OLEG RESUL TS MAY OCCUR . Repea t testi ng, or testi ng by a diffe rent metho d, may be indic ated in some setti ngs (e.g. patie nts with low likel ihood of HSV infec tion) . If clini anthony appro priat e, retes t 4 to 6 weeks later . HSV-2 IgG antib catherine testi ng resul ts shoul d be clini anthony corre lated . Not Available [facility] ([facility]) [address], [place], [address], 03/26/2024 07:16:43 03/25/20 24 03/26/2024 HBSAG SCREE N HBsAg screen NEGATI VE negati ve Not Available [facility] ([facility]) [address] [place], [address], 03/26/2024 07:16:44 03/25/20 24 03/26/2024 RPR, RFX QN RPR/C ONFIR M TP RPR NON REACTI VE nonrea ctive Not Available [facility] ([facility]) [address] [place], [address], 03/26/2024 07:16:44 03/25/20 24 03/26/2024 HIV AB/P2 4 AG WITH REFLE X HIV Ab/P24 Ag screen NON REACTI VE nonrea ctive HIV-1 /HIV- 2 antib odies and HIV-1 p24 antig en were NOT detec italo. There is no labor atory evide nce of HIV infec tion. HIV Negat oleg Not Available [facility] ([facility]) [address], [place], [address], 03/26/2024 07:16:45 03/25/20 24 03/27/2024 NUSWA B VAGIN ITIS PLUS (VG+) atopobium vaginae MODERA TE - 1 score Not Available [facility] ([facility]) [address], [place], [address], 03/28/2024 07:18:10 03/25/20 24 03/27/2024 NUSWA B VAGIN ITIS PLUS (VG+) bvab 2 LOW - 0 score Not Available [facility] ([facility]) [address], [place], [address], 03/28/2024 07:18:10 03/25/20 24 03/27/2024 NUSWA B VAGIN ITIS PLUS (VG+) megasphaera 1 LOW - 0 score Calcu late total score by yoly villarreal the 3 indiv idual bacte rial vagin osis (BV) marke r score s toget her. Total score is inter prete d as follo ws: Total score 0-1: Indic ates the absen ce of BV. Total score 2: Indet ermin ate for BV. Addit ional clini samuel data shoul d be evalu ated to estab osvaldo a diagn osis. Total score 3-6: Indic ates the prese nce of BV. Not Available [facility] ([facility]) [address], [place], [address], 03/28/2024 07:18:10 03/25/20 24 03/27/2024 NUSWA B VAGIN ITIS PLUS (VG+) yandy albicans, SHIV NEGATI VE negati ve Not Available [facility] ([facility]) [address], [place], [address], 03/28/2024 07:18:10 03/25/20 24 03/27/2024 NUA B VAGIN ITIS PLUS (VG+) yandy glabrata, SHIV NEGATI VE negati ve Not Available [facility] ([facility]) [address], [place], [address], 03/28/2024 07:18:10 03/25/20 24 03/27/2024 NUA B VAGIN ITIS PLUS (VG+) trich vag by SHIV NEGATI VE negati ve Not Available [facility] ([facility]) [address], [place], [address], 03/28/2024 07:18:10 03/25/20 24 03/27/2024 NUA B VAGIN ITIS PLUS (VG+) chlamydia trachomatis, SHIV NEGATI VE negati ve Not Available [facility] ([facility]) [address], [place], [address], 03/28/2024 07:18:10 03/25/20 24 03/27/2024 NUA B VAGIN ITIS PLUS (VG+) neisseria gonorrhoeae, SHIV NEGATI VE negati ve Not Available [facility] ([facility]) [address], [place], [address], 03/28/2024 07:18:10 03/25/20 24 03/27/2024 M GENIT ALIUM SHIV, SWAB mycoplasma genitalium SHIV NEGATI VE negati ve Not Available [facility] ([facility]) [address], [place], [address], 03/28/2024 07:18:11 03/25/20 24 03/27/2024 IGP,C TNGTV ,APT HPV,R FX16/ 18,45 diagnosis: COMMEN T NEGAT OLEG FOR INTRA EPITH ELIAL LESIO N OR MALIG SADIE . Not Available [facility] ([facility]) [address], [place], [address], 03/28/2024 07:19:06 03/25/20 24 03/27/2024 IGP,C TNGTV ,APT HPV,R FX16/ 18,45 specimen adequacy: PHUC Parish Satis facto ry for evalu ation . Endoc ervic al and/o r squam ous metap lasti c cells (endo cervi samuel compo nent) are prese nt. Not Available [facility] ([facility]) [address], [place], [address], 03/28/2024 07:19:06 03/25/20 24 03/27/2024 IGP,C TNGTV ,APT HPV,R FX16/ 18,45 clinician provided ICD10: PHUC Parish Z01.4 19 Z72.5 1 N89.8 Not Available [facility] ([facility]) [address], [place], [address], 03/28/2024 07:19:06 03/25/20 24 03/27/2024 IGP,C TNGTV ,APT HPV,R FX16/ 18,45 performed by: PHUC Castro , [place] (ASCP ) Not Available [facility] ([facility]) [address], [place], [address], 03/28/2024 07:19:06 03/25/20 24 03/27/2024 IGP,C TNGTV ,APT HPV,R FX16/ 18,45 . . Not Available [facility] ([facility]) [address], [place], [address], 03/28/2024 07:19:06 03/25/20 24 03/27/2024 IGP,C TNGTV ,APT HPV,R FX16/ 18,45 note: PHUC Parish The Pap smear is a scree vladimir test desedison jonah to aid in the detec tion of lucinda ligna nt and malig nant condi tions of the uteri ne cervi x. It is not a diagn ostic proce dure and shoul d not be used as the sole means of detec ting cervi samuel cance r. Both false -posi tive and false -nega tive repor ts do occur . Not Available [facility] ([facility]) [address] [place], [address], 03/28/2024 07:19:06 03/25/20 24 03/27/2024 IGP,C TNGTV ,APT HPV,R FX16/ 18,45 test methodology: COMMEN T This liqui d based ThinP rep(R ) pap test was art mckenzie with the use of an image guide elias eli. Not Available [facility] ([facility]) [address], [place], [address], 03/28/2024 07:19:06 03/25/20 24 03/27/2024 IGP,C TNGTV ,APT HPV,R FX16/ 18,45 HPV aptima POSITI VE negati ve abnormal This nucle ic acid ampli ficat ion test detec ts fourt een high- risk HPV types (16,1 8,31, 33,35 ,39,4 5,51, 52,56 ,58,5 9,66, 68) witho ut diffe renti ation . Not Available [facility] ([facility]) [address], [place], [address], 03/28/2024 07:19:06 03/25/20 24 03/27/2024 IGP,C TNGTV ,APT HPV,R FX16/ 18,45 HPV genotype reflex COMMEN T Cesarte garry met, see HPV Genot ype resul ts. Not Available [facility] ([facility]) [address] [place], [address], 03/28/2024 07:19:06 03/25/20 24 03/27/2024 IGP,C TNGTV ,APT HPV,R FX16/ 18,45 chlamydia, nuc. acid amp NEGATI VE negati ve Not Available [facility] ([facility]) [address] [place], [address], 03/28/2024 07:19:06 03/25/20 24 03/27/2024 IGP,C TNGTV ,APT HPV,R FX16/ 18,45 gonococcus, nuc. acid amp NEGATI VE negati ve Not Available [facility] ([facility]) [address] [place], [address], 03/28/2024 07:19:06 03/25/20 24 03/27/2024 IGP,C TNGTV ,APT HPV,R FX16/ 18,45 trich vag by SHIV NEGATI VE negati ve Not Available [facility] ([facility]) [address] [place], [address], 03/28/2024 07:19:06 03/25/20 24 03/28/2024 HPV GENOT YPES 16/18 ,45 HPV genotype 16 Negati ve negati ve Not Available [facility] ([facility]) [address] [place], [address], 03/28/2024 07:19:07 03/25/20 24 03/28/2024 HPV GENOT YPES 16/18 ,45 HPV genotype 18,45 Negati ve negati ve Not Available [facility] ([facility]) [address] [place], [address], 03/28/2024 07:19:07 09/02/20 24 09/03/2024 INTER PRETA TION: interpretati on: Commen t Not infec italo with HCV unles s early or acute infec tion is suspe cted (whic h may be delay ed in an immun ocomp romis ed indiv idual ), or other evide nce exist s to indic ate HCV infec tion. Not Available [facility] ([facility]) [address] [place], [address], 09/04/2024 07:14:21 09/02/20 24 09/03/2024 HCV ANTIB CATHERINE RFX TO QUANT PCR HCV Ab NON REACTI VE nonrea ctive Not Available [facility] ([facility]) [address], [place], [place], [address], 09/04/2024 07:14:21 09/02/20 24 09/03/2024 HSV 1 AND 2 AB, IGG hsv 1 IgG, type spec REACTI VE nonrea ctive abnormal Ple ase note refer ence inter patrica matamoros e HSV-1 IgG testi ng perfo rmed using the [employer] HSV-1 IgG assay . Not Available [facility] ([facility]) [address], [place], [address], 09/04/2024 07:14:23 09/02/20 24 09/03/2024 HSV 1 AND 2 AB, IGG hsv 2 IgG, type spec NON REACTI VE nonrea ctive Ple ase note refer ence inter patrica matamoros e Curre nt guide lines and recom menda tions do not recom mend routi ne scree [place] for HSV-2 in asymp tomat ic indiv idual s, inclu ding those that are pregn ant. The detec tion of HSV-2 IgG antib odies in a singl e sampl e indic ates previ ous expos ure to HSV-2 but does not give infor matio n as to the site of HSV infec tion or the timin g of expos ure. The predi ctive value of posit oleg and negat oleg resul ts depen ds on the popul ation 's preva lence and the prete st likel ihood of HSV-2 . HSV-2 IgG testi ng perfo rmed using the [employer] HSV-2 IgG assay . Not Available [facility] ([facility]) [address], [place], [address], 09/04/2024 07:14:23 09/02/20 24 09/04/2024 CT, NG, TRICH VAG BY SHIV chlamydia by SHIV NEGATI VE negati ve Not Available [facility] ([facility]) [address], [place], [address], 09/04/2024 07:14:24 09/02/20 24 09/04/2024 CT, NG, TRICH VAG BY SHIV gonococcus by SHIV NEGATI VE negati ve Not Available [facility] ([facility]) [address], [place], [address], 09/04/2024 07:14:24 09/02/20 24 09/04/2024 CT, NG, TRICH VAG BY SHIV trich vag by SHIV NEGATI VE negati ve Not Available [facility] ([facility]) [address], [place], [address], 09/04/2024 07:14:24 09/02/20 24 09/03/2024 HBSAG SCREE N HBsAg screen NEGATI VE negati ve Not Available [facility] ([facility]) [address] [place], [address], 09/04/2024 07:14:25 09/02/20 24 09/03/2024 RPR, RFX QN RPR/C ONFIR M TP RPR NON REACTI VE nonrea ctive Not Available [facility] ([facility]) [address] [place], [address], 09/04/2024 07:14:26 09/02/20 24 09/03/2024 HIV AB/P2 4 AG WITH REFLE X HIV Ab/P24 Ag screen NON REACTI VE nonrea ctive HIV-1 /HIV- 2 antib odies and HIV-1 p24 antig en were NOT detec italo. There is no labor atory evide nce of HIV infec tion. HIV Negat oleg Not Available [facility] ([facility]) [address] [place], [address], 09/04/2024 07:14:27 09/02/20 24 09/04/2024 URINE CULTU RE, ROUTI NE urine culture, routine FINAL REPORT abnormal Not Available [facility] ([facility]) [address], [place], [address], 09/04/2024 16:12:12 09/02/20 24 09/04/2024 URINE CULTU RE, ROUTI NE result 1 ESCHER ICHIA COLI abnormal Cefaz stefania <=4 ug/mL Cefaz stefania with an JUDY <=16 predi cts susce ptibi lity to the oral agent s cefac praful, cefdi suresh, cefpo doxim e, cefpr ozil, cefur oxime , cepha lexin , and lorac arbef when used for thera py of uncom plica italo urina ry tract infec tions due to E. coli, Klebs iella pneum oniae , and Prote us mirab ilis. Great er than 100,0 00 colon y formi ng units per mL Not Available [facility] ([facility]) [address], [place], [address], 09/04/2024 16:12:12 09/02/20 24 09/04/2024 URINE CULTU RE, ROUTI NE antimicrobia l susceptibili ty COMMEN T S = Susce ptibl e; I = Inter media te; R = Resis tant P = Posit oleg; N = Negat oleg MICS are expre ssed in micro grams per mL Antib iotic RSLT# 1 RSLT# 2 RSLT# 3 RSLT# 4 Amoxi cilli n/Cla vulan ic Acid S Ampic illin S Cefep raz S Ceftr iaxon e S Cefur oxime S Cipro floxa sam S Ertap enem S Genta micin S Imipe nem S Levof loxac in S Merop enem S Nitro furan toin S Piper acill in/Ta zobac carolina S Tetra cycli ne S Tobra mycin S Trime thopr im/Erickson lfa S Not Available [facility] ([facility]) [address], [place], [address], 09/04/2024 16:12:12 09/02/20 24 09/04/2024 M GENIT ALIUM SHIV, SWAB mycoplasma genitalium SHIV NEGATI VE negati ve Not Available [facility] ([facility]) [address], [place], [address], 09/04/2024 16:12:15 09/02/20 24 09/02/2024 urina lysis , dipst ick Leukocytes Trace Not Available In-Offi ce Order Internal Use Only DO Not Attach Compendium DO Not Attach Compendium, Do Not Delete/merge, [id number] 09/02/2024 11:48:24 09/02/20 24 09/02/2024 urina lysis , dipst ick Nitrite negati ve Not Available In-Office Order Internal Use Only DO Not Attach Compendium DO Not Attach Compendium, Do Not Delete/merge, [id number] 09/02/2024 11:48:24 09/02/20 24 09/02/2024 urina lysis , dipst ick Urobilinogen 1 Not Available In-Of fice Order Internal Use Only DO Not Attach Compendium DO Not Attach Compendium, Do Not Delete/merge, [id number] 09/02/2024 11:48:24 09/02/20 24 09/02/2024 urina lysis , dipst ick Protein Negati ve Not Available In-Office Order Internal Use Only DO Not Attach Compendium DO Not Attach Compendium, Do Not Delete/merge, [id number] 09/02/2024 11:48:24 09/02/20 24 09/02/2024 urina lysis , dipst ick pH 5.5 Not Available In-Office Order Internal Use Only DO Not Attach Compendium DO Not Attach Compendium, Do Not Delete/merge, [id number] 09/02/2024 11:48:24 09/02/20 24 09/02/2024 urina lysis , dipst ick Blood Modera te Not Available In-Office Order Internal Use Only DO Not Attach Compendium DO Not Attach Compendium, Do Not Delete/merge, [id number] 09/02/2024 11:48:24 09/02/20 24 09/02/2024 urina lysis , dipst ick Specific [place] 1.020 Not Available In-Off ice Order Internal Use Only DO Not Attach Compendium DO Not Attach Compendium, Do Not Delete/merge, [id number] 09/02/2024 11:48:24 09/02/20 24 09/02/2024 urina lysis , dipst ick Ketone Negati ve Not Available In-Office Order Internal Use Only DO Not Attach Compendium DO Not Attach Compendium, Do Not Delete/merge, [id number] 09/02/2024 11:48:24 09/02/20 24 09/02/2024 urina lysis , dipst ick Bilirubin Negati ve Not Available In-Office Order Internal Use Only DO Not Attach Compendium DO Not Attach Compendium, Do Not Delete/merge, [id number] 09/02/2024 11:48:24 09/02/20 24 09/02/2024 urina lysis , dipst ick Glucose Negati ve Not Available In-Office Order Internal Use Only DO Not Attach Compendium DO Not Attach Compendium, Do Not Delete/merge, [id number] 09/02/2024 11:48:24 09/02/20 24 09/02/2024 urina lysis , dipst ick Appearance Slight ly Cloudy Not Available In-Office Order Internal Use Only DO Not Attach Compendium DO Not Attach Compendium, Do Not Delete/merge, [id number] 09/02/2024 11:48:24 09/02/20 24 09/02/2024 urina lysis , dipst ick Color Dark Yellow Not Available In-Office Order Internal Use Only DO Not Attach Compendium DO Not Attach Compendium, Do Not Delete/merge, [id number] 09/02/2024 11:48:24 Result Notes None recorded. Problems Name Problem SNOMED Code Status Onset Date Resolution Date Notes Provider Name and Address Organization Details Recorded Time Sexually transmitted infectious disease 0134228 Active GUNNAR [place], [place] - [facility] 6 14:11:45 Bacterial vaginosis 793900748 Active GUNNAR [place], [place] - [facility] 6 14:11:45 Candidiasis of vagina 22801263 Active GUNNAR [place], [place] - [facility] 6 14:11:45 Urinary tract infectious disease 57100165 Active Jenniffer Swanson MA null, [facility] 7 12:00:10 Unruptured tubal 377345219 Active Jo Ann Veloz MA null, [facility] 6 14:11:45 Vaginal discharge 630237728 Active GUNNAR Lindsey, [facility] 6 14:11:45 Pruritus of vagina 48963587 Active Jo Ann Veloz MA null, [place] - [facility] 6 14:11:45 Dysuria 17179904 Active Jo Ann Veloz MA null, [facility] 6 14:11:45 Urinary tract infectious disease 61048754 Completed GUNNAR Zamora, [facility] 7 12:00:10 Problem Notes None recorded. Procedures Surgical History Date Name Laterality Status Provider Name and Address Organization Details Recorded Time 4 Date of Last Pap Smear completed Tahmina Ceron RN [facility] 03/31/2024 14:10:59 7 Tubal Ligation completed Elizabeth Mobley MA [facility] 09/02/2024 11:45:36 6 Other completed Jo Ann Veloz GUNNAR [facility] 05/04/2016 14:20:16 Imaging Results None recorded. Procedure Notes None recorded. Medical Equipment None Reported. Allergies No known drug allergies Medications Name Sig Start Date Stop Date Status Note LastModified by Organization Details LastModified Time cyclobenzap rine 10 mg tablet active Not Available Not Available Not Available amoxicillin 500 mg capsule 09/25 completed Not Available Not Available Not Available promethazin e-DM 6.25 mg-15 mg/5 mL oral syrup TAKE 5 ML BY MOUTH 4 (FOUR) TIMES A DAY NEEDED FOR COUGH (AND RUNNY NOSE) 12/26 completed Not Available Not Available Not Available clindamycin HCl 300 mg capsule TAKE 1 CAPSULE BY MOUTH EVERY 8 HOURS FOR 10 DAYS. 12/26 completed Not Available Not Available Not Available cetirizine 10 mg tablet TAKE 1 TABLET BY MOUTH ONCE DAILY active Not Available Not Available No t Available azithromyci n 250 mg tablet TAKE 2 TABLETS BY MOUTH ON DAY 1, AND THEN TAKE 1 TABLET BY MOUTH ONCE A DAY ON DAY 2 THROUGH DAY 5 09/02 completed Not Available Not Available Not Available ibuprofen 800 mg tablet active Not Available Not Available Not Available fluconazole 150 mg tablet TAKE 1 TABLET BY MOUTH ONCE DAILY DIRECTED FOR 1 DAY 09/02 completed Not Available Not Available Not Available hydrocodone 5 mg-acetamin ophen 325 mg tablet active Not Available Not Available No t Available phenazopyri dine 200 mg tablet TAKE 1 TABLET BY MOUTH 3 TIMES A DAY FOR 2 DAYS 12/26 completed Not Available Not Available Not Available metronidazo le 0.75 % (37.5 mg/5 gram) vaginal gel INSERT 1 APPLICATO R(S)FUL EVERY DAY BY VAGINAL ROUTE AT BEDTIME FOR 5 DAYS. 07/19 completed Not Available Not Available Not Available prednisone 20 mg tablet TAKE 2 TABLETS BY MOUTH ONCE DAILY FOR 5 DAYS 09/02 completed Not Available Not Available Not Available penicillin V potassium 500 mg tablet 10/18 completed Not Available Not Available Not Available metronidazo le 500 mg tablet Take 4 tablets every day by oral route for 1 day. 01/13 completed Not Available Not Available Not Available acetaminoph en 300 mg-codeine 30 mg tablet active Not Available Not Available Not Available allopurinol 100 mg tablet TAKE 1 TABLET BY MOUTH ONCE DAILY active Not Available Not Available No t Available ciprofloxac in 500 mg tablet TAKE 1 TABLET EVERY DAY BY ORAL ROUTE FOR 3 DAYS. 12/26 completed Not Available Not Available Not Available sulfamethox azole 800 mg-trimetho prim 160 mg tablet active Not Available Not Available Not Available amoxicillin 500 mg tablet Take 1 tablet twice a day by oral route. 08/08 completed Not Available Not Available Not Available Macrobid 100 mg capsule Take 1 capsule every 12 hours by oral route as directed for 7 days. 2023 active Not Available Not Available Not Avai lable Vitamin tablet Take 1 tablet every day by oral route. 09/25 completed Not Available Not Available Not Available oxycodone-a cetaminophe n 5 mg-325 mg tablet 09/25 completed Not Available Not Available Not Available amoxicillin 875 mg tablet TAKE 1 TABLET BY MOUTH EVERY 12 HOURS FOR 5 DAYS 03/25 completed Not Available Not Available Not Available cyanocobala min (vit B-12) 500 mcg tablet TAKE 1 TABLET BY MOUTH ONCE DAILY FOR 90 DOSES active Not Available Not Available No t Available diazepam 2 mg tablet active Not Available Not Available No t Available benzonatate 100 mg capsule 10/18 completed Not Available Not Available Not Available dexamethaso ne 4 mg tablet TAKE 3 TABLETS BY MOUTH EVERY DAY FOR 2 DAYS 12/26 completed Not Available Not Available Not Available Banophen 25 mg capsule 10/18 completed Not Available Not Available Not Available ergocalcife rol (vitamin D2) 1,250 mcg (50,000 unit) capsule TAKE 1 CAPSULE BY MOUTH ONCE A WEEK FOR 12 DOSES active Not Available Not Available No t Available ibuprofen 600 mg tablet TAKE 1 TABLET BY MOUTH EVERY 8 HOURS 03/25 completed Not Available Not Available Not Available fluticasone propionate 50 mcg/actuati on nasal spray,suspe nsion USE 1 SPRAY(S) IN EACH NOSTRIL ONCE DAILY DIRECTED active Not Available Not Available No t Available doxycycline hyclate 100 mg tablet TAKE 1 TABLET BY MOUTH TWICE A DAY FOR 7 DAYS WITH FOOD. 03/25 completed Not Available Not Available Not Available loratadine 10 mg tablet TAKE 1 TABLET BY MOUTH ONCE DAILY active Not Available Not Available No t Available metoclopram camila 10 mg tablet active Not Available Not Available Not Available amoxicillin 875 mg-potassiu m clavulanate 125 mg tablet TAKE 1 TABLET BY MOUTH EVERY 12 HOURS FOR 7 DAYS 09/02 completed Not Available Not Available Not Available Sprintec (28) 0.25 mg-0.035 mg tablet Take 1 tablet every day by oral route. active Not Available Not Available No t Available vits 96-ferrous fumarate 27 mg iron-folic acid 800 mcg tablet 09/25 completed Not Available Not Available Not Available Aftera 1.5 mg tablet 10/18 completed Not Available Not Available Not Available Vol-Plus 27 mg iron-1 mg tablet 09/25 completed Not Available Not Available Not Available Vitals Date Recorded Body height Body mass index (BMI) Body weight Systolic blood pressure Diastolic blood pressure Provider Name and Address Organization Details Last Updated DateTime 12/26/2022 162.56 cm 39.7 kg/m2 695074.2 4 g 118 mm[Hg] 80 mm[Hg] Yesenia Woodard MA [facility] 3 10:21:37 Date Recorded Body height Body mass index (BMI) Body weight Heart rate Systolic blood pressure Diastolic blood pressure Provider Name and Address Organization Details Last Updated DateTime 3 162.56 cm 40.2 kg/m2 405688. 61 g 81 /min 133 mm[Hg] 88 mm[Hg] Yesenia Woodard MA [facility] 3 10:04:54 Date Recorded Body weight Body mass index (BMI) Body height Heart rate Systolic blood pressure Diastolic blood pressure Provider Name and Address Organization Details Last Updated DateTime 4 605565. 64 g 41.6 kg/m2 162.56 cm 82 /min 142 mm[Hg] 99 mm[Hg] Yeni Rossi MA [facility] 4 10:57:07 Date Recorded Body height Body mass index (BMI) Body weight Systolic blood pressure Diastolic blood pressure Provider Name and Address Organization Details Last Updated DateTime 08/08/2021 162.56 cm 38.6 kg/m2 692240.2 8 g 136 mm[Hg] 90 mm[Hg] Elizabeth Mobley MA [facility] 1 12:08:51 Date Recorded Body height Body mass index (BMI) Body weight Systolic blood pressure Diastolic blood pressure Provider Name and Address Organization Details Last Updated DateTime 09/02/2024 162.56 cm 38.6 kg/m2 135869.2 8 g 165 mm[Hg] 120 mm[Hg] Elizabeth Mobley MA [facility] 4 11:39:47 Social History Question Answer Notes LastModified by Organizat ion Details LastModified Time Tobacco Smoking Status Never Smoker Ellen Otoole MA null, [facility] 12/28/2014 15:59:00 Do You Have An Advance Directive? No Information n ot available 12/28/2014 Is Blood Transfusion Acceptable In An Emergency? Yes Information not available 12/28/2014 What Is Your Level Of Caffeine Consumption? Moderate Information not available 12/28/2014 How Much Tobacco Do You Chew? None Information not available 12/28/2014 In The 14 Days Before Symptom Onset, Have You Had Close Contact With A Laboratory-confirm ed COVID-19 While That Case Was Ill? No Information n ot available 09/02/2024 In The 14 Days Before Symptom Onset, Have You Had Close Contact With A Person Who Is Under Investigation For COVID-19 While That Person Was Ill? No Information not available 09/02/2024 Have You Been To An Area Known To Be High Risk For COVID-19? No Information not available 09/02/2024 What Type Of Diet Are You Following? REGULAR Information n ot available 12/28/2014 Education 12 Information no t available 12/28/2014 What Is The Highest Grade Or Level Of School You Have Completed Or The Highest Degree You Have Received? [id number] Information not available 09/02/2024 Have There Been Any Changes To Your Family Or Social Situation? No Information no t available 09/02/2024 Live Alone Or With Others? With Others Information not available 12/28/2014 What Was The Date Of Your Most Recent Tobacco Screening? 03/25/2024 Information not available 03/25/2024 How Many Children Do You Have? 1 Information not available 12/28/2014 Performs Monthly Self-breast Exam? No Information no t available 12/28/2014 Do You Have Any Pets? Yes X Dog Information not available 09/02/2024 Do You Use Protection During Sex? No Information not available 12/28/2014 What Is Your Relationship Status? Single Information not available 12/28/2014 Do You Use Your Seat Belt Or Car Seat Routinely? Yes Information not available 09/02/2024 Seat Belts Used Routinely Yes Information not available 12/28/2014 Are You Sexually Active? Yes Information not available 12/28/2014 Do You Have Smoke And Carbon Monoxide Detectors In Your Home? Yes Information not available 09/02/2024 Are You Passively Exposed To Smoke? No Information no t available 09/02/2024 How Much Tobacco Do You Smoke? No Information not available 12/28/2014 General Stress Level High Information not available 12/28/2014 Do You Use Sunscreen Routinely? No Information not available 12/28/2014 On What Date Was Tobacco Cessation Counseling Provided? 03/25/2024 Information not available 03/25/2024 Sex: Female Functional Status Question Answer Note LastModified by Organizat ion Details LastModified Time What is your level of alcohol consumption? Occasional Information not available 12/28/2014 Do you or have you ever used smokeless tobacco? Never used smokeless tobacco Information not available 01/14/2020 Are you currently employed? 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 Never used electronic cigarettes Information not available 01/14/2020 What is your exercise level? Occasional Information not available 12/28/2014 Mental Status Question Answer Note LastModified by Organization D etails LastModified Time Do you feel stressed (tense, restless, nervous, or anxious, or unable to sleep at night)? [id number] Information not available 09/02/2024 Family History Relationship Description Onset Age of this Age Resolved Age Notes LastModified by Organization Details LastModified Time Mother Heart disease [email or web address] Not available 2015 16:47:07 Father Heart disease [email or web address] Not available 2015 16:47:07 Medical History Condition Response Heart Problems N Other N High Blood Pressure N Breast Cancer N Thyroid Problems N Kidney or Bladder Problems N Lung Disease N GI Problems N Depression N Blood Clots N Acne N Have you had a mammogram in the last yea r? N Breast Problem N Eating Disorder N Anemia N Anesthesia Complications N Headaches/Migraines N Ovarian Cancer N Diabetes N Anxiety Disorder N Muscle, Joint, or Bone Problems N Blood Transfusions N Seizures/Epilepsy N Arthritis N Polyps N Infertility N Acid Reflux (GERD) N Cancer N Stroke N Abuse/Domestic Violence N Asthma N Endometriosis N High Cholesterol N Hepatitis N Liver Disease N Heart Disease N Headaches Y Fibromyalgia N Pre-Eclampsia N Hypertension N Osteoporosis N Kidney Disease N Gynecological History Statement/Question Response Abnormal Pap Yes Flow Moderate Date of LMP 01/05/2023 STIs/STDs Yes HPV Vaccine N Duration of Flow (days) 4 Age at Menarche 12 Current Control Method Tubal Ligat ion Age at First Child 19 Frequency of Cycle (Q days) 25 Sexually Active? Y Menses Monthly Y Date of Last Pap Smear 03/25/2024 Sexual Problems? N LMP Approximate Obstetrics History GPAL:G 4 P 2 0 2 2 Type Value Full Term 2 Spontaneous 1 Living 2 Ectopics 1 Total 4 Immunizations Vaccine Type Date Status Note Provider Nam e and Address Organization Details Recorded Time Tdap 12/07/2016 completed Not Available [facility] 10/04/2019 02:33:27 Past Encounters Encounter ID Performer Location Encounter Start Date Encounter Closed Date Diagnosis/Indication Diagnosis SNOMED-CT Code Diagnosis ICD10 Code Diagnosis Note [id number] [facility]ida Elise [facility] Shorty Mojica ([facility]) [address] [place] [address] 09/07/2014 14:27:56 09/11/2014 09:53:48 Vaginal discharge [id number] MD Shorty Cardenas ([facility] [address]) [address] [place] [address] 12/28/2014 15:35:12 12/29/2014 10:56:04 Gynecologic examination 16379319 Sexually t ransmitted infectious disease 0061935 [id number] Aida Elise [facility] Shorty Mojica ([facility] [address]) [address] [place] [address] 04/20/2015 09:47:56 04/20/2015 12:21:39 Vaginal discharge 622459143 [id number] Aida Elise [facility] Shorty Womenalpesh ([facility] [address]) [address] [place] [address] 06/30/2015 09:38:23 06/30/2015 10:05:08 Contraception care 063859539 Z30.40 Vaginal discharge 468711 006 N89.8 [id number] Aida Elise [facility] Shorty Mojica ([facility] [address]) [address] [place] [address] 08/25/2015 10:06:35 08/25/2015 16:19:40 Venereal disease screening 244886623 Z11.3 [id number] Aida Elise [facility] Shorty Mojica ([facility] [address]) [address] [place] [address] 12/15/2015 10:50:03 12/15/2015 14:53:45 detection examination 74226138 Z32.00 [id number] Aida Elise [facility] Shorty Mojica ([facility] [address]) [address] [place] [address] 01/03/2016 14:15:43 01/04/2016 10:58:51 Unruptured tubal 429082423 O00.1 [id number] [facility] Shorty Mojica ([facility] [address]) [address] [place] [address] 02/21/2016 15:42:55 02/22/2016 11:52:30 Venereal disease screening 938917890 Z11.3 Dysuria 15113817 R30.0 Vaginal discharge 627226 006 N89.8 [id number] Aida Elise GRISEL Mojica ([facility] [address]) [address] [place] [address] 05/04/2016 14:08:07 05/04/2016 15:36:10 detection examination 20264448 Z32.00 Gynecologi c examination 97397698 Z01.920 [id number] Aida Elise [facility] Shorty Mojica ([facility] [address]) [address] [place] [address] 06/13/2016 16:17:29 06/14/2016 08:54:47 Normal 58197539 Z34.90 Amenorrhea 59904623 N91. 2 [address]inary tr act infectious disease 29169938 N39.0 [id number] Aida Elise [facility] Shorty Mojica ([facility] [address]) [address] [place] [address] 07/03/2016 16:23:14 07/04/2016 09:54:26 Normal 37776672 Z34.90 Gestation period, 10 weeks 09204733 Z3A.10 [id number] Aida Elise [facility] Shorty Mojica ([facility] [address]) [address] [place] [address] 08/08/2016 16:40:30 08/09/2016 08:52:38 Normal 29570957 Z34.90 [id number] Aida Elise ANGELA Shorty Mojica ([place] [address]) [address] [facility] [place] [address] 08/31/2016 09:58:09 08/31/2016 11:06:02 Normal 93918857 Z34.90 Vaginal discharge 068745 006 N89.8 [id number] Aida Elise ANGELA Shorty Mojica ([place] [address]) [address] [facility] [place] [address] 09/19/2016 12:09:25 09/20/2016 09:10:23 Normal 17405720 Z34.90 [id number] Aida Elise ANGELA Shorty Mojica ([place] [address]) [address] [facility] [place] [address] 10/10/2016 12:27:50 10/10/2016 15:35:19 Normal 72248824 Z34.82 [id number] Aida Elise GRISEL Mojica ([place] [address]) [address] [facility] [place] [address] 11/07/2016 09:24:40 11/07/2016 12:05:00 Normal 13385558 Z34.93 [id number] MD Shorty Dumas ([place] [address]) [address] [facility] [address] [place] [address] 11/23/2016 14:02:29 11/23/2016 14:42:02 Routine care [id number] Z34.93 [id number] MD Shorty Dumas ([place] [address]) [address] [facility] [place] [address] 12/07/2016 14:50:21 12/07/2016 15:23:39 Normal 99509699 Z34.83 [id number] MD Shorty Dumas ([place] [address]) [address] [facility] [place] [address] 12/21/2016 11:11:49 12/21/2016 15:29:45 Normal [id number] Z34.83 [id number] MD Shorty Dumas ([place] [address]) [address] [facility] [place] [address] 12/28/2016 11:26:16 12/28/2016 14:35:47 Normal 34672242 Z34.83 History of urinary tract infection [id number] 107 Z87.273 [id number] MD Shorty Dumas ([facility] 122) [address] [facility] [place] [address] 01/04/2017 10:41:37 01/04/2017 11:17:17 Normal [id number] Z34.83 [id number] MD Shorty Dumas ([facility] 122) [address] [facility] [place] [address] 01/11/2017 11:17:37 01/11/2017 11:54:29 Normal 91015131 Z34.83 Bacterial vaginosis 4197 60598 N76.0 [id number] MD Shorty Collado ([place] [address]) [address] [facility] [place] [address] 01/18/2017 11:34:54 01/18/2017 12:22:28 Routine care [id number] Z34.93 [id number] MD Shorty Dumas ([place] [address]) [address] [facility] [place] [address] 01/25/2017 10:16:49 01/25/2017 13:44:55 Normal 66495103 Z34.83 Post-term 9096 8009 O48.1 [id number] MD Shorty Dumas ([facility] 122) [address] [facility] [place] [address] 02/14/2017 14:53:16 02/20/2017 13:53:23 care [id number] Z39.2 [id number] MD Shorty Dumas ([facility] 122) [address] [facility] [place] [address] 03/13/2017 14:30:12 03/13/2017 17:28:14 Vaginal discharge 185926458 N89.8 care [id number] 8 Z39.2 [id number] MD Shorty Dumas ([facility] 122) [address] [facility] [place] [address] 04/10/2017 15:11:48 04/10/2017 18:02:17 Postoperative visit 498884888 Z09 Female sterilization 608 18652 Z30.2 [id number] MD Shorty Dumas Womens ([facility] 122) [address] [facility] [address] [place] [address] [place] [address] 09/25/2017 16:15:58 09/25/2017 18:30:44 Vaginal discharge 501948054 N89.8 Venereal d isease screening 048239171 Z11.3 [id number] MD Shorty Dumas [address] [place] [facility] [place] [address] 02/27/2018 11:44:07 03/11/2018 11:01:55 Venereal disease screening 836851792 Z11.3 - STD testing was sent as per patient request. Will re-evalute with results. [id number] MD Shorty Dumas [address] [place] [address] 11/19/2018 14:36:02 11/19/2018 16:49:23 Vaginal discharge 496653467 N89.8 Venereal d isease screening 909610108 Z11.3 - STD testing was sent as per patient request. Will re-evaluat e with results. [id number] MD Shorty Dumas [address] [place] [address] [place] [address] 12/24/2018 10:13:22 12/25/2018 08:35:00 History of sexually transmitted disease 983412526 Z86.19 Pt educated on std prevention . THAD completed [id number] MD Shorty Collado [address] [place] [address] [place] [address] 01/01/2019 11:34:55 01/02/2019 08:38:35 Infection by Trichomonas 34898191 A59.9 Patient educated about STI and treatment. Take complete course of antibiotic , no intercours e until 7 days after course completed, use condoms at all times, good vulvar hygiene, notify partner of infection and the need to be treated. follow up in 4 week for THAD or call office if issue occurs [id number] MD Shorty Collado [address] [place] [address] [place] [address] 03/24/2019 16:46:11 03/25/2019 08:36:31 History of sexually transmitted disease 158604188 Z86.19 THAD preformed and pt educated on std prevention . Vaginal discharge 215281 006 N89.8 Educated patient on vulvar hygiene and use condoms during sex. swab obtained and sent to lab. [id number] Elizabeth Wiggins [employer]CH[employer]IAN- Shorty 14 OB [address] [facility] [address] [place] [address] [place] [address] [address] 05/13/2019 16:25:20 05/14/2019 09:08:00 Venereal disease screening 971173088 Z11.3 1. STD testing done per pt request 2. Educated pt on STD prevention , Condom use 3. Pt verbalized understand ing 4. Will follow up pending lab results, as needed or at next annual [id number] MD Shorty Collado [address] [facility] [place] [address] 07/17/2019 16:34:22 07/17/2019 18:23:07 Venereal disease screening 322376802 Z11.3 Nuswab collected and sent to lab. Counseled on safe sex, condom use and STD precaution s discussed screening completed per patient's request Vaginal discharge 655783 006 N89.8 Educated patient on vulvar hygiene and use condoms during sex. swab obtained and sent to lab. Pt treated empiricall y for yeast infection and rx sent. [id number] SERA oGnzalez [address] [facility] [place] [address] 01/14/2020 11:31:49 01/15/2020 10:02:47 Bacterial vaginosis 824954944 N76.0 Educated patient on vulvar hygiene and use condoms during sex. Pt treated empiricall y for BV. PT notified to call office if symptoms continue after treatment. Pt requested rx for metrogel. Venereal d isease screening 705547452 Z11.3 pt to bring in urine sample to send to lab. Counseled on safe sex, condom use and STD precaution s discussed [id number] LELAND [place] [address] [place] [address] 03/29/2020 11:09:22 03/30/2020 10:53:55 Viral screening 501577958 Z11.59 D/w pt the current pandemic of COVID-19 and call for social isolation in order to blunt the curve and minimize risk and spread. Encouraged patient and family to take restrictio ns seriously. They have verbalized understand ing of such. Viral syndrome 645524627 B34.9 [id number] Elizabeth Wiggins [facility] Shorty 14 OB [address] [facility] [address] [place] [address] [place] [address] 04/08/2020 14:05:44 04/09/2020 11:24:58 High risk sexual behavior 330692252 Z72.51 1. STD testing done per pt request 2. Educated pt on STD prevention , Condom use 3. Pt verbalized understand ing 4. Will follow up pending lab results, as needed or at next annual d [id number] MD Jose A Anderson [address] [place] [address] 04/19/2020 11:12:12 04/20/2020 07:22:54 Viral screening 022391690 Z11.59 D/w pt the current pandemic of COVID-19 and call for social isolation in order to blunt the curve and minimize risk and spread. Encouraged patient and family to take restrictio ns seriously. They have verbalized understand ing of such. Viral syndrome 572734492 B34.9 [id number] MD Shorty Collado 14 OB [address] [facility] [address] [place] [address] [place] [address] 10/18/2020 14:21:34 10/19/2020 12:42:17 Gynecologic examination 90277805 Z01.419 -Educated on the importance of SBE and awareness. -Discussed the importance of cervical cancer screenings -Educated osteoporos is prevention including calcium rich foods, weight bearing exercise. -Discussed the importance of exercise. -Nutrition discussed and the importance of a diet rich in fruits, vegetable, whole grains, and lean proteins. -Counseled regarding prevention of STD's and screening options, condom use and prevention . -Advised avoidance of tobacco, alcohol, and drugs. High risk sexual behavior 243491639 Z72.51 pap with STD testing collected and sent to lab. serum std ordered. Counseled on safe sex, condom use and STD precaution s discussed screening completed per patient's request [id number] MD Shorty Collado 14 OB [address] [place] [address] 04/12/2021 11:43:26 04/13/2021 08:39:00 Increased frequency of urination 358443355 R35.0 High risk sexual behavior 468662077 Z72.51 urine collected and sent to lab. serum std ordered. Counseled on safe sex, condom use and STD precaution s discussed screening completed per patient's request Dysuria 78744949 R30.9 urine culture and std testing completed. Pt educated on uti management and medicaton. Pt notified to call office if symptoms worsen or if symptoms do not resolve with treatment. [id number] Arvin Gonzalez MD Shorty 14 OB [address] [facility] [place] [address] 08/08/2021 11:50:11 08/09/2021 06:11:07 Venereal disease screening 033295585 Z11.3 [id number] Elizabeth Wiggins [facility] Shorty OB [address] [place] [address] 12/26/2022 09:57:54 12/27/2022 12:29:19 Gynecologic examination 53989682 Z01.419 1. Counseled regarding prevention of STD's , condom use and prevention . 2. Counseled regarding contracept oleg options, risk factors and side effects. 3. Advised avoidance of tobacco, alcohol, and drugs . 4. Counseled regarding folic acid supplement ation, calcium needs and prevention of osteoporos is . 5. BSE reviewed and recommende d. 6. Follow up in one year or sooner if needed. Venereal d isease screening 811772849 Z11.3 1. STD testing done per pt request 2. Educated pt on STD prevention , Condom use 3. Pt verbalized understand ing 4. Will follow up pending lab results, as needed or at next annual [id number] Elizabeth Wiggins [facility] Shorty 14 OB [address] [place] [address] 01/23/2023 09:55:37 01/24/2023 12:48:27 History of sexually transmitted disease 277381016 Z86.19 1. STD testing done per pt request 2. Educated pt on STD prevention , Condom use 3. Pt verbalized understand ing 4. Will follow up pending lab results, as needed or at next annual [id number] MD Shorty Collado 14 OB [address] [facility] [address] [place] [address] 03/25/2024 10:49:03 03/26/2024 10:30:16 Gynecologic examination 27967787 Z01.419 --CBE and pap smear performed Vaginal discharge 682218 006 N89.8 High risk sexual behavior 694542761 Z72.51 Morbid obesity 944974031 E66.01 Depression screening 171 724123 Z13.31 --PHQ9=1 [id number] MD Shorty Collado 14 OB [address] [facility] [address] [place] [address] 09/02/2024 10:53:00 09/04/2024 10:30:14 Venereal disease screening 958517503 Z11.3 At [facility] risk of urinary tract infection 155760931 Z91.89 History of tubal ligation 581892472 Z98.51 Obesity 568545227 E66.9 Health Concerns Section Related Observation LastModified by Organization Detai ls LastModified Time None Recorded Concern Status LastModified by Organization Details LastModified Time None Recorded Advance Directives Directive N: Payers Insurance Date Sequence Insurance Name Policy Number Policy Robin Covered Member ID Robin Member ID Guarantor Name 08/26/2024 1 [place] [facility] Jadyn Whipple [id number] Jadyn Whipple 08/26/2024 1 [facility] (MEDICAID HMO) [id number] Jadyn Whipple [id number] Jadyn Whipple 08/26/2024 1 [place] [facility] Jadyn Whipple [id number] Jadyn Whipple 09/02/2024 1 [facility] (MEDICAID HMO) [id number] Jadyn Whipple [id number] Jadyn Whipple Notes Date Note Type Note Provider Name and Address Organization Details Recorded Time 08/08/2021 text/html Patient presents for STD testing. She denies any current complaints but states she wants to be tested. Arvin Gonzalez MD Attn: [address] [place], [address], [facility] 08/08/2021 12:35:16 12/26/2022 text/html Annual GYNReport ed bypatient.History:n o gynecologic complaints Menstrual cycle:Normal menses Urinary symptoms:No hematuria; No incontinence Vulva:No genital lesion Vagina:Normal vaginal discharge Breast:No breast pain; No breast lump; No nipple discharge Current Contraception:Satis fied with current contraception; Tubal ligation; Requests testing for sexually transmitted infections Sexual complaints:No sexual complaints; No pain during intercourse; Normal libido Menopausal Symptoms:No menopausal symptoms; Normal vaginal lubrication Psychological symptoms:No depression; No anxiety; No PMDD Preventive measures:Encourage self breast examination; Encourage regular exercise; Encourage no tobacco use; Followed with Q3 year pap smear and high risk HPV typing 32 yo fe here for annual well women exam. Pt denies any complaints.- would like std testing- last pap 10/18/20 hpv positive- tubal ligation, THOMAS Brock Attn: Accounting[address] [place], [address], [facility] 12/26/2022 10:45:29 01/23/2023 text/html Annual GYNReport ed bypatient.History:n o gynecologic complaints Menstrual cycle:Normal menses Urinary symptoms:No hematuria; No incontinence Vulva:No genital lesion Vagina:Normal vaginal discharge Breast:No breast pain; No breast lump; No nipple discharge Current Contraception:Satis fied with current contraception; Tubal ligation; Requests testing for sexually transmitted infections Sexual complaints:No sexual complaints; No pain during intercourse; Normal libido Menopausal Symptoms:No menopausal symptoms; Normal vaginal lubrication Psychological symptoms:No depression; No anxiety; No PMDD Preventive measures:Encourage self breast examination; Encourage regular exercise; Encourage no tobacco use; Followed with Q3 year pap smear and high risk HPV typing 33 yo fe here for thad chlamydia 12/26/22- pap 10/18/20 hpv positive- pap 12/26/22 hpv positive- tubal ligation, THOMAS Brock Attn: Accounting[address] [place], [address], [facility] 01/23/2023 11:31:31 03/25/2024 text/html Annual GYNReport ed bypatient.Menstrual cycle:Normal menses Urinary symptoms:No hematuria; No incontinence Vulva:No genital lesion Vagina:Normal vaginal discharge;Vaginal itching Breast:No breast pain; No breast lump; No nipple discharge Current Contraception:Tubal ligation; Requests testing for sexually transmitted infections Sexual complaints:No sexual complaints; No pain during intercourse; Normal libido Menopausal Symptoms:No menopausal symptoms; Normal vaginal lubrication Psychological symptoms:No depression; No anxiety; No PMDD Arvin Gonzalez MD Attn: [address] [place], [address], [facility] 03/25/2024 11:51:31 09/02/2024 text/html Patient presents for STI testing and also states she is concerned that she may have a UTI. She admits to incomplete emptying and increased urinary frequency. The patient also states that she desires and would like tubal reanastomosis performed. Arvin Gonzalez MD Attn: [address] [place], [address], [facility] 09/02/2024 15:28:21 OBGyn Episode Ob Episode Information Episode Created Date Number of Fetuses Patient Bloodtype Patient rh Status Prepregnancy Weight lbs Domestic Partner Domestic Partner Phone Father Name Beef Boner Status 06/13/20 16 1 B Positive Josemanuel Mejias CLOSED Fetus Data First Name Last Name Admitted to NICU Weight (g) Sex Living Outcome Pediatric Complications Fetus ID Race Codes Race Delivery Type Clay Carver s false [phone] F true Full Term [id number] Black or Afric an Ameri can Vaginal Problems Problem Notes Problem Name Start Date End Date Resolution Snomed Code Not e Urinary tract infectious disease [id number] Armando Calculation Initial Armando Date Initial Exam Date Initial Exam Provider Initial Ultrasound Date Last Menstrual Period Date Ultra Sound Weeks Gestation 01/27/2017 06/13/2016 mpass 12/22/2015 04/22/2016 0 Eighteen To Twenty Week Armando Update Ultra Sound Date Fundal Height At Umbil Quickening Date Ultra Sound Latest Weeks Gestation Final Armando Confirmed By Final Armando Confirmed Date Final Armando Date Ultra Sound Latest Days Gestation 0 knealma 07/03/2016 01/27/20 17 0 Pre-jostin Flowsheet Flowsheet Date 06/13/2016 Kline Score Blood Edema Fundus Height Fundus Units Glucose Ketones Leukocytes Nitrite Labor Signs Protein Cervic Dilation Cervic Effacement Cervic Station trace none none negative neg 0cm 0% -4 Type Weight in lbs Pre/Post Dialysis Refused 212.32553669490 BP Diastolic BP Location Tested BP Systolic BP Type 82 120 sitting Fetus Heart Rate Present Fetus Movement A No Comments Initial labs, dating US orde r, OB pamphlet Flowsheet Date 07/03/2016 Kline Score Blood Edema Fundus Height Fundus Units Glucose Ketones Leukocytes Nitrite Labor Signs Protein Cervic Dilation Cervic Effacement Cervic Station neg none none negative neg Type Weight in lbs Pre/Post Dialysis Refused 211.747684426165 BP Diastolic BP Location Tested BP Systolic BP Type 78 124 sitting Fetus Heart Rate Present A Present Fetus Movement A No Comments Flowsheet Date 08/08/2016 Kline Score Blood Edema Fundus Height Fundus Units Glucose Ketones Leukocytes Nitrite Labor Signs Protein Cervic Dilation Cervic Effacement Cervic Station neg none none large neg Type Weight in lbs Pre/Post Dialysis Refused 204.791429035479 BP Diastolic BP Location Tested BP Systolic BP Type 78 124 sitting Fetus Heart Rate Present A Present Fetus Movement A No Comments quad screen, anatomy US Flowsheet Date 08/31/2016 Kline Score Blood Edema Fundus Height Fundus Units Glucose Ketones Leukocytes Nitrite Labor Signs Protein Cervic Dilation Cervic Effacement Cervic Station neg none none negative neg 0cm 0% - 4 Type Weight in lbs Pre/Post Dialysis Refused 212.81614963005 BP Diastolic BP Location Tested BP Systolic BP Type 76 124 sitting Fetus Heart Rate Present A 144 Fetus Movement A Yes Comments c/o itching. Nuswab done. Flowsheet Date 09/19/2016 Kline Score Blood Edema Fundus Height Fundus Units Glucose Ketones Leukocytes Nitrite Labor Signs Protein Cervic Dilation Cervic Effacement Cervic Station neg none 21 none negative neg Type Weight in lbs Pre/Post Dialysis Refused 217.647225463391 BP Diastolic BP Location Tested BP Systolic BP Type 74 122 sitting Fetus Heart Rate Present A 149 Fetus Movement A Yes Comments Flowsheet Date 10/10/2016 Kline Score Blood Edema Fundus Height Fundus Units Glucose Ketones Leukocytes Nitrite Labor Signs Protein Cervic Dilation Cervic Effacement Cervic Station neg none 24 none negative neg Type Weight in lbs Pre/Post Dialysis Refused 222.14282492573 BP Diastolic BP Location Tested BP Systolic BP Type 72 120 sitting Fetus Heart Rate Present A 145 Present Fetus Movement A Yes Comments Flowsheet Date 11/07/2016 Kline Score Blood Edema Fundus Height Fundus Units Glucose Ketones Leukocytes Nitrite Labor Signs Protein Cervic Dilation Cervic Effacement Cervic Station neg none 29 cm none negative neg Type Weight in lbs Pre/Post Dialysis Refused 224.720592388339 BP Diastolic BP Location Tested BP Systolic BP Type 68 100 sitting Fetus Heart Rate Present A 147 Fetus Movement A Yes Comments 28 week labs Flowsheet Date 11/23/2016 Kline Score Blood Edema Fundus Height Fundus Units Glucose Ketones Leukocytes Nitrite Labor Signs Protein Cervic Dilation Cervic Effacement Cervic Station neg 34 none negative neg Type Weight in lbs Pre/Post Dialysis Refused 226.960038972046 BP Diastolic BP Location Tested BP Systolic BP Type 72 128 sitting Fetus Heart Rate Present A 152 Fetus Movement A Yes Comments Patient c/o back pain. Patie nt denies dysuria. No CVA tenderness. Patient has sickle cell trait. Will order urine culture. Patient denies vaginal bleeding or leakage of fluid. Patient reports good movements. labor precautions were given. Flowsheet Date 12/07/2016 Kline Score Blood Edema Fundus Height Fundus Units Glucose Ketones Leukocytes Nitrite Labor Signs Protein Cervic Dilation Cervic Effacement Cervic Station neg 31 none negative neg Type Weight in lbs Pre/Post Dialysis Refused 232.95282093126 BP Diastolic BP Location Tested BP Systolic BP Type 74 118 sitting Fetus Heart Rate Present A 145 Fetus Movement A Yes Comments Patient offers no complaints . Patient refers Tommie Wade contractions. Patient reports good movements. TDAP was given. labor precautions were given. Flowsheet Date 12/21/2016 Kline Score Blood Edema Fundus Height Fundus Units Glucose Ketones Leukocytes Nitrite Labor Signs Protein Cervic Dilation Cervic Effacement Cervic Station trace 36 none negative neg Type Weight in lbs Pre/Post Dialysis Refused 230.858507393863 BP Diastolic BP Location Tested BP Systolic BP Type 88 122 Fetus Heart Rate Present A 136 Fetus Movement A Yes Comments Patient reports being seen i n L & D and being treated for a UTI. Patient offers no complaints today. GBS culture to be done during the patient's next visit. Will repeat urine culture during the patient's next visit. Flowsheet Date 12/28/2016 Kline Score Blood Edema Fundus Height Fundus Units Glucose Ketones Leukocytes Nitrite Labor Signs Protein Cervic Dilation Cervic Effacement Cervic Station trace 37 none negative neg 0cm 50% -2 Type Weight in lbs Pre/Post Dialysis Refused 229.761378091246 BP Diastolic BP Location Tested BP Systolic BP Type 84 120 sitting Fetus Heart Rate Present A 145 Fetus Movement A Yes Comments Patient offers no complaints . GBS culture was sent. labor precautions were given. Flowsheet Date 01/04/2017 Kline Score Blood Edema Fundus Height Fundus Units Glucose Ketones Leukocytes Nitrite Labor Signs Protein Cervic Dilation Cervic Effacement Cervic Station neg 38 none negative neg 0cm 50% - 3 Type Weight in lbs Pre/Post Dialysis Refused 228.488515653634 BP Diastolic BP Location Tested BP Systolic BP Type 76 117 sitting Fetus Heart Rate Present A 145 Fetus Movement A Yes Comments GBS is negative. Patient c/o pelvic pressure. Patient reports good movements. Flowsheet Date 01/11/2017 Kline Score Blood Edema Fundus Height Fundus Units Glucose Ketones Leukocytes Nitrite Labor Signs Protein Cervic Dilation Cervic Effacement Cervic Station 37 Type Weight in lbs Pre/Post Dialysis Refused 231.966667254321 BP Diastolic BP Location Tested BP Systolic BP Type 70 122 Fetus Heart Rate Present A 138 Fetus Movement A Yes Comments Patient c/o fishy odor. Wendy ent states that she is unable to sleep. Patient reports good movements. Rx for Flagyl was sent to the pharmacy. Labor precautions were given. Patient will see Dr. Gonzalez during the next visit. Flowsheet Date 01/18/2017 Kline Score Blood Edema Fundus Height Fundus Units Glucose Ketones Leukocytes Nitrite Labor Signs Protein Cervic Dilation Cervic Effacement Cervic Station neg none 38 cm none negative Tommie Wade neg Type Weight in lbs Pre/Post Dialysis Refused 231.828188156834 BP Diastolic BP Location Tested BP Systolic BP Type 60 116 sitting Fetus Heart Rate Present A 148 Present Fetus Movement A Yes Comments Patient admits to intermitte nt contractions and movement, no VB, VD or LOF. Labor precautions given. RTC in [address] Au Flowsheet Date 01/25/2017 Kline Score Blood Edema Fundus Height Fundus Units Glucose Ketones Leukocytes Nitrite Labor Signs Protein Cervic Dilation Cervic Effacement Cervic Station neg none none negative trace 0cm 50% -3 Type Weight in lbs Pre/Post Dialysis Refused 227.701821456535 BP Diastolic BP Location Tested BP Systolic BP Type 80 128 sitting Fetus Heart Rate Present A 150 Fetus Movement A Yes Comments Patient reports being seen i n labor and delivery for labor check. Patient endorses contractions. Patient denies vaginal bleeding and leakage of fluid. Patient reports good movements. Will start surveillance at 40 weeks. Patient is scheduled for IOL on 2017. Labor precautions were given. Flowsheet Date 02/14/2017 Kline Score Blood Edema Fundus Height Fundus Units Glucose Ketones Leukocytes Nitrite Labor Signs Protein Cervic Dilation Cervic Effacement Cervic Station Type Weight in lbs Pre/Post Dialysis Refused 203.56627573866 BP Diastolic BP Location Tested BP Systolic BP Type 82 114 sitting Fetus Heart Rate Present Fetus Movement Comments Menstrual History Last Menstrual Date Menses Monthly On Bcp Conception Prior Menses Frequency Hcg Plus Date Menarche Onset Age 0804/22/2016 true false 28 12 Genetic Screening And Infection History Question Response Note Patient's Age Will Be 35 Yea rs Or Older At Estimated Date of Delivery false Thalassemia (Norwegian, Azeri, Mediterranean, Or Background): MCV < 80 false Neural Tube Defect (Meningom yelocele, Spina Bifida, Or Anencephaly) false Congenital Heart Defect false Down Syndrome false Stephan-Sachs (eg, Lutheran, [place], [place]) f alse Dante Disease false Sickle Cell Disease Or Trait () true Pt. with trait Hemophilia Or Other Blood Disorders false Muscular Dystrophy false Cystic Fibrosis false Jarreau's Chorea false Mental Retardation/Autism false Other Inherited Genetic Or Chromosomal Disorder false Maternal Metabolic Disorder (eg, Type 1 Diabetes , PKU) false Patient Or Baby's Father Had A Child With Defects Not Listed Above false Recurrent Loss, Or A Stillbirth false Medications (including Suppl ements, Vitamins, Herbs, OTC Drugs), Illicit/Recreational Drugs, Alcohol true ATOH x 1 Any Other Genetic History false Live With Someone With TB Or Exposed To TB false Patient Or Partner Has History Of Genital Herpes false Rash Or Viral Illness Since Last Menstrual Perio d false History Of STD, Gonorrhea, Chlamydia, HPV, Syphi lis true chl Delivery Information Delivery Date Delivery Type Labor Anesthesia Weeks Gestation Incision Type Labor Labor Length Hrs Delivered By Post Complications Tubal Sterilization Discharge Date Comments 7 [facility] 40.[address] uA false 02/01/2017 Discharge Information Feeding Method Contraceptive Method Maternal HG B and HCT Levels Breast
[2025-02-28 11:47] VITALS: BP 148/99; PULSE 64; RESP 16; TEMP 37.1; O2SAT 100
--- NOTE | 2025-02-28 12:05 | ED_ITS ---
HPI - URI/Sore Throat General Chief Complaint: Upper Respiratory Infection Stated Complaint: sinus inf, drainage Time Seen by Provider: 02/28/25 11:50 Source: patient and RN notes reviewed Mode of arrival: ambulatory Limitations: no limitations History of Present Illness HPI Narrative: 35-year-old female presents to [facility] complaining upper respiratory symptoms for 4-5 days. Patient reports having sinus pressure, congestion, mucopurulent discharge, and tactile fevers. Patient reports she started to feel slightly better and in her symptoms have worsened over the last couple days. Patient denies any cough, ear pain, body aches, chills, nausea, vomiting, diarrhea, chest pain, shortness of breath, or any other symptoms. Patient has tried naproxen without relief. Related Data Home Medications ?Medication ?Instructions ?Recorded ?Confirmed ?Last Taken ?Type ergocalciferol (vitamin D2) 1,250 12/02/23 12/02/23 Unknown History mcg (50,000 unit) capsule allopurinol 100 mg tablet mg 02/28/25 Unknown History cyanocobalamin (vitamin B-12) 500 mcg 02/28/25 Unknown History mcg tablet fluticasone propionate 50 intranasal 02/28/25 Unknown History mcg/actuation nasal spray,suspension loratadine 10 mg tablet mg 02/28/25 Unknown History metoprolol succinate 25 mg mg PO 02/28/25 Unknown History tablet,extended release 24 hr Allergies Allergy/AdvReac Type Severity Reaction Status Date / Time No Known Allergies Allergy Verified 02/28/25 11:56 Review of Systems Review of Systems: CONSTITUTIONAL: Positive for fevers. Negative for body aches, chills, or sweats. EYES: Denies visual changes, redness, or discharge. ENT: Denies rhinorrhea, sore throat, or otalgia. Positive for congestion and sinus pressure. CARDIOVASCULAR: Denies chest pain, palpitations, or edema. RESPIRATORY: Denies cough or dyspnea. GASTROINTESTINAL: Denies abdominal pain, nausea, vomiting, or diarrhea. GENITOURINARY: Denies dysuria or hematuria. SKIN: Denies rash or itching. MUSCULOSKELETAL: Denies back pain, joint pain, or myalgia. NEUROLOGIC: Denies headache, numbness, or weakness. PSYCHIATRIC: Denies anxiety or depression. All other systems reviewed are negative, except as documented in HPI. PMFSH Comments At the time of my signature, I reviewed and agree with the nursing past medical, surgical, social, and family history. There is no relevant family history pertinent to the patient complaint. Exam Narrative: GENERAL: This is a well-nourished, well-developed adult, in no apparent distress. They are non ill-appearing, nontoxic appearing. HEAD: normocephalic, atraumatic. EYES: Sclera clear/white. Conjunctiva normal. Vision is grossly intact. Extraocular movements intact EARS: External ears normal, auditory canals clear and without drainage, TMs normal without perforation. Hearing grossly intact. NOSE: External nose normal with no obvious nasal discharge, nasal turbinates erythematous with exudate present, no rhinorrhea. Sinus tenderness to palpation to the frontal sinuses. Abnormal transillumination of maxillary sinuses. THROAT: Mucous membranes moist, posterior pharynx clear, without erythema or swelling. Uvula midline. Postnasal drip present. NECK: Neck supple, non-tender without lymphadenopathy, masses or thyromegaly. CARDIOVASCULAR: Regular rate and rhythm without murmurs, gallops, or rubs. RESPIRATORY: Clear to auscultation. Breath sounds equal bilaterally. No wheezes, rales, or rhonchi. SKIN: warm, Dry, intact with no suspicious lesions or rash, good texture and turgor. NEURO: awake, alert, and oriented to person, place and time. There were no obvious focal neurologic abnormalities. EXTREMITIES: No joint tenderness, effusion, or edema noted. BACK: Nontender without deformity. No CVA tenderness. Course Course Emergency Course: Portions of this record may have been created with voice recognition software Level of Care: Express Care Visit Vital Signs Vital signs: Vital Signs Temperature 98.8 F 02/28/25 11:47 Pulse Rate 64 02/28/25 11:47 Respiratory Rate 16 02/28/25 11:47 Blood Pressure 148/99 H 02/28/25 11:47 Pulse Oximetry 100 02/28/25 11:47 Oxygen Delivery Room Air 02/28/25 11:47 Temperature 98.8 F 02/28/25 11:47 Pulse Rate 64 02/28/25 11:47 Respiratory Rate 16 02/28/25 11:47 Blood Pressure 148/99 H 02/28/25 11:47 Pulse Oximetry 100 02/28/25 11:47 Oxygen Delivery Room Air 02/28/25 11:47 Reviewed MDM - URI/Sore Throat MDM Narrative Medical decision making narrative: Clinically patient has symptoms bacterial sinusitis, will treat with Augmentin. Discussed physical exam findings. Advised supportive measures and signs/symptoms to go to the ER. Pt is appropriate for outpt treatment and f/u. Differential Diagnosis Differential diagnosis: Likely upper respiratory infection, sinusitis and pharyngitis Critical Care Time Critical Care Time Critical Care Time: No Discharge Plan Discharge Clinical Impression: Sinusitis Qualifiers: Sinusitis location: unspecified location Chronicity: acute Recurrence: non- recurrent Qualified Code(s): J01.90 - Acute sinusitis, unspecified Patient Disposition: Home Condition: Stable Instructions: Antibiotic Form, Sinusitis (ED) Additional Instructions: Take the antibiotics as directed and complete the course even if you start to feel better. You may use a Neti pot saline rinse 3 times a day with lukewarm distilled water Continue to take Tylenol or Motrin for pain. Use a humidifier or vaporizer at night. Drink plenty of water. 8-10 glasses per day. Use flonase 2 times per day for 5 days then as needed Take mucinex 2 times per day and be sure to take with 8oz of water. Follow up with Primary provider in 3-5 days Please go to the ER if he develops any difficulty breathing, worsening symptoms, or any other concerns Patient Language: Citizen Of [place] Prescriptions: New ibuprofen 600 mg tablet 600 mg PO Q6H PRN (Reason: pain) Qty: 30 0RF amoxicillin-pot clavulanate 875-125 mg tablet 1 tablet PO Q12H 7 Days Qty: 14 0RF No Action ergocalciferol (vitamin D2) 1,250 mcg (50,000 unit) capsule allopurinol 100 mg tablet cyanocobalamin (vitamin B-12) 500 mcg tablet metoprolol succinate 25 mg tablet extended release 24 hr PO fluticasone propionate 50 mcg/actuation spray,suspension INTRANASAL loratadine 10 mg tablet Follow-up/Referrals: Everardo,Taj Gray MD [Primary Care Provider] - Time of Disposition: 12:04
== END 2025-02-28 12:08 | disposition home or self-care (01) ==
PROVIDERS: PCP Family Medicine
DX: J01.90 Acute sinusitis, unspecified (principal); I10 Essential (primary) hypertension; M10.9 Gout, unspecified; Z86.16 Personal history of COVID-19
CPT/HCPCS: 99213; G0463